=== PATIENT | male | born 1945 | race Caucasian/White ===

== ENCOUNTER 2024-03-07 18:38 | Inpatient (IN) | payer MEDICARE, OTHER, SELFPAY ==
[2024-03-07 12:52] VITALS: BP 127/84
[2024-03-07 13:29] LABS: % Basophils 0.4 % (0-2); % Immature Granulocytes 0.5 % (0-0.5); % Lymphocytes 6.2 % (20.5-51.1); % Monocytes 7.3 % (1.7-9.3); % Neutrophils 82.6 % (42.2-75.2); Absolute Basophils 0.1 10^3/uL (0-0.2); Absolute Eosinophils 0.4 10^3/uL (0-0.7); Absolute Immature Granulocytes 0.1 10^3/uL (0-0.05); Absolute Lymphocytes 0.7 10^3/uL (1.2-3.4); Absolute Monocytes 0.9 10^3/uL (0.1-0.6); Absolute Neutrophils 9.8 10^3/uL (1.4-6.5); Hematocrit 35.8 % (39.0-52.0); Hemoglobin 11.7 g/dL (13.0-18.0); Mean Corp Hgb Conc. 32.7 g/dL (33.0-37.0); Mean Corpuscular Hgb 26.4 pg (27.0-31.0); Mean Corpuscular Volume 80.8 fL (80.0-94.0); Mean Platelet Volume 9.6 fL (7.4-10.4); Nucleated Red Blood Cells % 0 % (-); Platelet Count 320 10^3/uL (130-400); Red Blood Cell Count 4.43 10^6/uL (4.70-6.10); Red Cell Dist. Width 15.4 % (11.5-14.5); White Blood Cell Count 11.9 10^3/uL (4.8-10.8)
[2024-03-07 13:39] LABS: ALT (SGPT) 139 U/L (0-50); AST (SGOT) 94 U/L (17-59); Albumin 3.6 g/dl (3.5-5.0); Alkaline Phosphatase 976 U/L (38-126); Blood Urea Nitrogen 23 mg/dl (9-20); Carbon Dioxide 23 mmol/L (22-30); Chloride 100 mmol/L (98-107); Glucose 144 mg/dl (70-99); Lipase 34 U/L (23-300); Potassium 3.9 mmol/L (3.5-5.1); Sodium 137 mmol/L (135-145); Total Bilirubin 11.4 mg/dl (0.2-1.3); Total Protein 6.8 g/dl (6.3-8.2); eGFR > 60.00
--- NOTE | 2024-03-07 16:04 | ED.GENMED ---
History of Present Illness
General
Chief Complaint: Abdominal Pain
Time Seen by Provider: 03/07/24 15:28
Nursing documentation reviewed up to this point in time: agreed with
History of Present Illness
History of Present Illness:
Patient is a 79-year-old male sent from [facility]. It is documented that patient was sent for abdominal pain and jaundice. Nurse Paulino reports pt started to c.o of abdominal pain on Sunday. Yesterday she noticed that pt was jaundice and pt did
c/o of abdominal pain.
Pt back from US during my exam . I was called by nurse stating that pt is agiated yelling trying to get out of bed and yelling. PT attempting to bite staff yelling.
Nurse from [place] reports pt can be violent and screams and yells.
Past History
Past History
ED Past Medical History: CAD, CVA, Hypercholesterolemia, Seizures and Hypothyroidism
ED Past Surgical History: Brain
Social History
Alcohol: None
Drug: None
Living: long term
Employment: Retired
Review of Systems
Review of Systems
Allergies reviewed?: Yes
Unable to obtain full review of systems at this time due to: dementia
All Other Systems: ROS reviewed and negative except as documented in HPI and ROS
Phy Exam
General Physical Exam
General Presentation: no apparent distress
General Skin: warm, dry and other (Jaundice)
General Habitus: elderly
General Mental: other (agitated )
General Hydration: appears well hydrated
Cardiovascular Exam
Cardiovascular Exam: regular rate/rhythm, no murmur and normal peripheral pulses
Pulmonary Exam
Pulmonary Exam: lungs clear and no respiratory distress
Neurological Exam
Neurological Exam: alert and oriented x3
Musculoskeletal Exam
Musculoskeletal Exam: full ROM
Skin Exam
Skin Exam: normal color and warm/dry
Psychiatric Exam
Psychiatric Exam: agitated
Course
Orders/Labs/Results
Orders:
Orders
10/04/24 13:14
Complete Blood Count/With Diff Urgent
Comprehensive Metabolic Panel Urgent
Lipase Urgent
03/07/24 13:53
US Abdomen Complete/Upper Urgent
Comment: LFTs high
Reason For Exam: abd pain, jaundice
03/07/24 16:38
Haloperidol Lactate [Haldol] 5 mg IM NOW STA
Lorazepam [Ativan] 1 mg IM NOW STA
Lorazepam [Ativan] 2 mg .ROUTE .STK-MED ONE
03/07/24 16:39
Haloperidol Lactate [Haldol] 5 mg .ROUTE .STK-MED ONE
03/07/24 16:57
0.9% Sodium Chloride 1000 ml [Nss] 1,000 ml IV BOLUS
03/07/24 16:58
Piperacillin/Tazo 3.375 Gram [Zosyn] 3.375 gram in 50 ml IV NOW
03/07/24 17:16
Lactic Acid Q4H
Comment: CANCEL 2nd LACTIC ACID IF 1st LACTIC ACID IS LESS THAN 2
Blood Culture Routine
ADELAIDA Source: Blood/Venous
Specimen Description:
Blood Culture Urgent
ADELAIDA Source: Blood/Venous
Specimen Description:
03/07/24 21:00
Lactic Acid Q4H
Comment: CANCEL 2nd LACTIC ACID IF 1st LACTIC ACID IS LESS THAN 2
Abnormal Lab Results
03/07/24
13:14
WBC 11.9 H 10^3/uL
(4.8-10.8)
RBC 4.43 L 10^6/uL
(4.70-6.10)
Hgb 11.7 L g/dL
(13.0-18.0)
Hct 35.8 L %
(39.0-52.0)
MCH 26.4 L pg
(27.0-31.0)
MCHC 32.7 L g/dL
(33.0-37.0)
RDW 15.4 H %
(11.5-14.5)
Abs Immat Gran (auto) 0.1 H 10^3/uL
(0-0.05)
Absolute Neuts (auto) 9.8 H 10^3/uL
(1.4-6.5)
Absolute Lymphs (auto) 0.7 L 10^3/uL
(1.2-3.4)
Absolute Monos (auto) 0.9 H 10^3/uL
(0.1-0.6)
Neutrophils % 82.6 H %
(42.2-75.2)
Lymphocytes % 6.2 L %
(20.5-51.1)
BUN 23 H mg/dl
(9-20)
Glucose 144 H mg/dl
(70-99)
Total Bilirubin 11.4 H mg/dl
(0.2-1.3)
AST 94 H U/L
(17-59)
ALT 139 H U/L
(0-50)
Alkaline Phosphatase 976 H U/L
(38-126)
03/07/24 13:14
03/07/24 13:14
Vital Signs
Initial and Last Documented VS:
Initial Vital Signs
Temp Pulse Resp BP Pulse Ox
98.4 F 88 16 127/84 97
03/07/24 12:52 03/07/24 12:52 03/07/24 12:52 03/07/24 12:52 03/07/24 12:52
Last Documented Vital Signs
Temp Pulse Resp BP Pulse Ox
98.4 F 77 20 104/81 99
03/07/24 12:52 03/07/24 16:28 03/07/24 16:28 03/07/24 16:28 03/07/24 16:28
MDM/Problems Addressed
Differential Diagnosis Includes:
Not limited to ascending cholangitis biliary ductal stone(choledocholithiasis)
MDM/Problems Addressed:
Called to pt's room. Pt just back from CT scan uncoopeerative yelling attempting to bite trying to get off the stretcher. Patient was given Ativan and Haldol IM
As documented patient is a 79-year-old male who is demented from long term who has a history of violent behavior and agitation sent for evaluation abdominal pain and jaundice. To speak with nurse at long term. Patient has contact number
listed however I did speak with her she is first cousin and not power of corporate associate attorney patient does not have a power of corporate associate attorney. He does have a brother who has not talked to him in 20 years. She will call brother and I will attempt to call brother
soon. Patient is afebrile white count minimally elevated 11.9 bilirubin however elevated 11.4 with AST and ALT elevated alk phos elevated 976. Normal creatinine.
1655: Patient now calmer sleep stable vital signs we will have nursing start IV line and do blood work including lactic acid blood cultures. Will order IV Zosyn. Case discussed with and hosptialist.
*Radiology
Radiology exam reviewed: radiology read reviewed
*Pulse Oximetry
Patient hypoxic: no
*Critical Care Note
Total Time (30-74mins, 75-104mins- exclusive of procedures): Not Applicable
ED Attending Note
-
Portions of this chart may have been created with voice recognition software.� Occasional wrong word or��sound alike� substitutions may have occurred due to the inherent limitations of voice recognition software.
Discharge Plan
Departure
Patient Disposition: Admit
Date of Disposition: 03/07/24
Time of Disposition: 17:12
Admit to: Med/Surg
Admit to doctor: hospitalist
Presentation/result/management discussed w/ accepting MD/DO: Hospitalist
Patient with high blood pressure during this ER visit?: No
Condition: Fair
Covid-19: Not Applicable
Discharge Problem:
Jaundice, Abdominal pain
Prescriptions:
No Action
levetiracetam 500 MG tablet
500 mg PO BID
tramadol 50 MG tablet
50 mg PO BID
simvastatin 40 MG tablet
40 mg PO QPM
levothyroxine 50 MCG tablet
50 mcg PO NOW
gabapentin 100 MG capsule
200 mg PO DAILY
topiramate 100 MG tablet
100 mg PO DAILY
Rx Instructions:
taken w/ 25mg = 125mg
acetaminophen [Tylenol] 325 MG capsule
650 mg PO Q4HPRN PRN (Reason: mild pain/temp>100)
melatonin 5 MG tablet
5 mg PO HS
hydrocodone-acetaminophen 5-325 mg tablet
1 tab PO DAILY
topiramate 25 mg tablet
25 mg PO DAILY
Rx Instructions:
taken w/ 100mg= 125mg
aspirin 81 mg Tablet,Delayed Release (Dr/Ec)
81 mg PO DAILY
magnesium hydroxide [Milk of Magnesia] 400 mg/5 mL Suspension
30 ml PO DAILYPRN PRN (Reason: if no bm in 3 days)
hydrocortisone 1 % Cream
1 applic TOPICAL Q6HPRN PRN (Reason: reddened, pruritic skin)
docusate sodium 100 mg Capsule
200 mg PO HS
topiramate 200 mg tablet
200 mg PO DAILY
duloxetine 60 mg capsule,delayed release(DR/EC)
60 mg PO DAILY
cholecalciferol (vitamin D3) 50 mcg (2,000 unit) Tablet
50 mcg PO DAILY
Aveeno Daily Moisturizing 1.2 % Lotion
1 ea TOPICAL DAILY
Rx Instructions:
apply to b/l lower legs/feet
Referrals:
UNKNOWN - PT NOT,INTERVIEWE [Family Provider] -
Interventions
Interventions:
*Risk Screen - Suicide Last Done: 03/07/24 16:54
*General Assessment Last Done: 03/07/24 16:54
*Neglect/Abuse Screening Last Done: 03/07/24 16:54
*ED COVID-19 Vaccine History Last Done: 03/07/24 16:54
TC-Lpeshn-Ruivlxsmop Assessment Last Done: 03/07/24 16:54
Discharge Date and Time
Print Language: SYRIAC
[2024-03-07 16:28] VITALS: BP 104/81
[2024-03-07] MEDS: HALDOL 5 MG IM (16:42)
[2024-03-07] MEDS: ATIVAN 1 MG IM (16:42)
--- NOTE | 2024-03-07 16:49 | EDRN ---
Patient became very agitated, trying to get out of bed. Patient unable to be redirected by staff. Patient trying to hit and bite staff. Provider at bedside. Medications given per MAR. Patient appears comfortable at this time. Pillow provided, HOB
adjusted.
[2024-03-07] MEDS: NSS 1000 IV ×2 (17:14→20:33)
[2024-03-07] MEDS: ZOSYN 50 IV ×2 (17:14→23:17)
--- NOTE | 2024-03-07 17:14 | HPS.HSE ---
Family Physician
-
Family Physician: INTERVIEWE UNKNOWN - PT NOT
Chief Complaint
-
Abdominal pain, jaundice
History of Present Illness
79-year-old male sent from [facility] complaining of right upper quadrant abdominal pain since Sunday 5 days ago. Yesterday he was noted to be jaundice in color. In the ER on arrival he was agitated attempting to get out of bed yelling
and attempting to bite staff. He was given IV Ativan and Haldol is currently calm. He reports to me he has pain in the right upper quadrant of his abdomen. He denies nausea, vomiting, diarrhea, chest pain, palpitations, shortness with, cough,
fever, chills, urinary symptoms. He has history of dementia but is oriented to place of living [facility] in [place], age, date of , first cousins name Bernadette, estranged brother he told me Rory,. When asked about CODE STATUS in
front of nurse Donna Gil he stated I do not want to be in the fci I do not want to be like that not a vegetable wandering around saying jesus lee blah. He tells me is past medical history of ambulatory dysfunction uses a walker,
history of CHF with chronic leg edema, brain aneurysm rupture with repair August 1994, CVAs patient states multiple, seizures, CAD, HTN, HLD, chronic pain on chronic oral opiates, hypothyroidism, depression, vitamin D deficiency, insomnia, COVID October
2019, spina bifida/spinal stenosis, bilateral hypertensive retinopathy
Medical History
Past Medical History
Past Medical History: Reports Other
Additional Past Medical History:
Dementia
Brain aneurysm rupture with repair August 1994 [facility]
Aphasia-resolved
Dysphagia-resolved
Seizures
TIA hemiaplasia/hemiparesis
CAD
HTN
CHF with peripheral leg edema
HLD
CKD
Hypothyroidism
Depression
Vitamin D deficiency
Insomnia
History of prior COVID October 2019
Spina bifida/spinal stenosis
Chronic ambulatory dysfunction Hx falls
Bilateral hypertensive retinopathy
Past Surgical History: Reports Other
Additional Past Surgical History:
Brain aneurysm rupture with repair [facility] August 1994, plate in head
Social History
Tobacco: Non-smoker
Alcohol: None
Drug: None
Personal: Single (Never no children)
Living: Care Home ([facility])
Employment: Retired
Family History
Family History: Not pertinent
Allergies / Home Medications
Allergies reflects when Allergies were last updated in [employer].
Home Medications with original date entered in [employer]
Allergy/Medication List:
Allergies
Allergy/AdvReac Type Severity Reaction Status Date / Time
No Known Allergies Allergy Unverified 03/07/24 12:52
Home Medications
acetaminophen 325 mg capsule (Tylenol) 650 mg PO Q4HPRN PRN mild pain/temp>100 10/07/19
gabapentin 100 mg capsule 200 mg PO DAILY 10/07/19
levetiracetam 500 mg tablet 500 mg PO BID 10/07/19
levothyroxine 50 mcg tablet 50 mcg PO NOW 10/07/19
melatonin 5 mg tablet 5 mg PO HS 10/07/19
simvastatin 40 mg tablet 40 mg PO QPM 10/07/19
topiramate 100 mg tablet 100 mg PO DAILY 10/07/19
tramadol 50 mg tablet 50 mg PO BID 10/07/19
aspirin 81 mg tablet,delayed release 81 mg PO DAILY 03/07/24
cholecalciferol (vitamin D3) 50 mcg (2,000 unit) tablet 50 mcg PO DAILY 03/07/24
dimethicone 1.2 %-colloidal oatmeal lotion (Aveeno Daily Moisturizing) 1 ea topical DAILY 03/07/24
docusate sodium 100 mg capsule 200 mg PO HS 03/07/24
duloxetine 60 mg capsule,delayed release 60 mg PO DAILY 03/07/24
hydrocodone 5 mg-acetaminophen 325 mg tablet 1 tab PO DAILY 03/07/24
hydrocortisone 1 % topical cream 1 applic topical Q6HPRN PRN reddened, pruritic skin 03/07/24
magnesium hydroxide 400 mg/5 mL oral suspension (Milk of Magnesia) 30 ml PO DAILYPRN PRN if no bm in 3 days 03/07/24
topiramate 200 mg tablet 200 mg PO DAILY 03/07/24
topiramate 25 mg tablet 25 mg PO DAILY 03/07/24
Review of Systems
-
History Source: Patient and Care Home
A 12 point ROS was completed and negative except as noted: Yes
Constitutional: Denies Fever or Chills
EENT: Denies Sore Throat or Runny Nose
Respiratory: Denies Cough or Trouble Breathing
Cardiac: Denies Chest Pain, Diaphoresis, Palpitations or Syncope
Abdomen/GI: Reports Abdominal Pain (Right upper quadrant); Denies Nausea, Vomiting, Diarrhea, Constipated, Bloody Stools or Black Stools
: Denies Dysuria, Frequency, Flank Pain, Incontinence, Difficulty Voiding or Urgency
Musculoskeletal: Reports Edema (Chronic leg edema left greater than right); Denies Joint Pain
Skin: Reports Other (Diffuse jaundice head to toe, icteral sclera); Denies Itching or Rash
Neurological: Denies Dizzy, Headache or Weakness
Endocrine: Denies Polyuria or Polydipsia
Hematologic/Lymphatic: Reports No Symptoms
Psych: Reports Calm (Was prior agitated biting and trying to get out of bed was given IV Ativan and Haldol by ER)
Physical Exam
Vital Signs
Vital Signs
Temp Pulse Resp BP Pulse Ox
98.4 F 77 20 104/81 99
03/07/24 12:52 03/07/24 16:28 03/07/24 16:28 03/07/24 16:28 03/07/24 16:28
Physical Exam
General: Comfortable and Conversant; No Pain, Fever or Chills
HEENT: NormoCephalic, Anicteric, Moist mucous membranes, PERRLA and Other (icteral sclera)
Respiratory: Clear; No Wheezes, Rales or Rhonchi
Cardiac: S1/S2, Regular Rhythm and Peripheral Edema (Bilateral left greater than right); No Murmur, Rub or Gallop
Breast: Deferred by me
GI: Soft, Non Distended, Normal Bowel Sounds, Tender (Tender right upper quadrant on palpation, mild tenderness left upper quadrant) and No Hepatosplenomegaly
Rectal: Deferred by Provider
Genito-urinary: Deferred by me
Musculoskeletal: No Clubbing, No Cyanosis, Edema, Left Lower Extremity (+1 edema) and Edema, Right Lower Extremity (Trace edema right leg); No Edema, Left Upper Extremity or Edema, Right Upper Extremity
Skin: Warm, Dry and Jaundice (Generalized from head to toe); No Rash
Neuro: Awake, Alert, Oriented (To name, date of , place of living, cousin Becky's name and phone number, brother he is estranged from, medical history), No Motor Deficits and No Sensory Deficits; No Slurred Speech, Facial Droop, Tremors or
Sedated
Psych: Calm
Laboratory Results
-
03/07/24 13:14
03/07/24 13:14
Laboratory Results
Total Bilirubin 11.4 mg/dl (0.2-1.3) H 03/07/24 13:14
AST 94 U/L (17-59) H 03/07/24 13:14
ALT 139 U/L (0-50) H 03/07/24 13:14
Alkaline Phosphatase 976 U/L (38-126) H 03/07/24 13:14
Lipase 34 U/L (23-300) 03/07/24 13:14
Data Reviewed
-
Ultrasound: Report Reviewed by me
Lab Data: Labs Reviewed by me
Impression/Plan
-
Impression/plan:
Admit to MedSurg
#Hyperbilirubinemia with transaminitis concern for choledocholithiasis
T. bili 11.4, AST 94, ALT 139, alk phos 976
WBC 11.9 with left shift, afebrile
-N.p.o.
-IV NSS
-IV Zofran
Continue patient's hydrocodone/acetaminophen 1 tab daily, tramadol 50 mg twice daily
-Blood culture, check lactic acid
-IV Zosyn
-Consult GI
-MRCP
-Follow CBC, CMP
Ultrasound abdomen Gallbladder is distended and contains a fluid-fluid layer, compatible with diffuse sludge. There are also shadowing gallstones within the gallbladder.
The bladder wall is top normal to slightly thickened with a negative sonographic Gonzales's sign.
Diffuse intrahepatic bile duct dilation. The common hepatic duct is dilated, measuring up to 9.8 mm. Common bile duct is unable to be confidently visualized.
Spleen, pancreas, upper abdominal aorta, and upper abdominal IVC are unable to be adequately visualized.
Findings raise concern for biliary obstruction in the region of the common bile duct. Considerations include obstructing calculus and mass in the region of the head of the pancreas.
#Acute agitation with history of Dementia
-Patient given IV Ativan and Haldol in ER for acute agitation
-IV Haldol as needed agitation
#CVA hx hemiaplasia/hemiparesis-patient reports had more than 1 unsure of years
Subtle left arm hemiparesis can lift up to face
Aphasia/Dysphagia hx -resolved
#Seizures hx poststroke
-Continue Keppra IV 500 mg twice daily
-Continue Topamax 325 mg daily
#Chronic diastolic heart failure with chronic peripheral edema
I/O, daily weights
Would apply teds dressings
No diuretics listed
#CAD
-Hold aspirin 81 mg daily
#HTN-benign
-No medications reported
#HLD
Check lipid profile
-HOLD simvastatin 40 mg every afternoon
#Chronic pain on chronic oral opiates due to spinal stenosis
Patient on hydrocodone/acetaminophen 1 tab daily, tramadol 50 mg twice daily gabapentin 200 mg daily
#Hypothyroidism
-Continue levothyroxine 50 mcg p.o. daily
#Depression
-Continue Cymbalta 60 mg daily
#Vitamin D deficiency
-Continue vitamin D3 50 mcg p.o. daily
#Insomnia
-Continue melatonin 5 mg at bedtime
#Chronic ambulatory dysfunction Hx falls
Patient reports uses walker to ambulate
-PT/OT consult
Other PMH:
History of prior COVID October 2019
Spina bifida/spinal stenosis
Bilateral hypertensive retinopathy
DVT prophylaxis
Subcu Lovenox
DNR per patient with nurse Donna Licona at bedside patient was very clear and adamant he did not want to be stuck in a fci like a vegetable or wandering around saying jesus lee when discussing CPR and a ventilator. He does not
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 He has a brother Rich he is estranged from x 25 years [phone]
[2024-03-07 17:38] LABS: Lactic Acid 1.6 mmol/L (0.7-2.0)
--- NOTE | 2024-03-07 18:33 | W.PN.UPDATE ---
Update Note
Progress Note Update
This is an addendum to the H&P written by Vanda Barton on 03/07/2024.� Patient seen and examined independently with [employer] COURTESY CLERK.
79-year-old male past medical history of dementia, CVA with subtle left-sided hemiparesis, seizure history, brain aneurysm status post rupture status post repair, CAD, hypertension, hypertensive retinopathy, hyperlipidemia, spinal stenosis/chronic
back pain, hypothyroidism, depression, vitamin D deficiency, insomnia, chronic amatory dysfunction with falls, presenting with right upper quadrant abdominal pain and jaundice and agitation.
Patient was agitated in ER and received Haldol and Ativan.
Labs show leukocytosis, transaminitis with elevation in bilirubin up to 11.� Abdominal ultrasound shows gallbladder distention with fluid-filled layer compatible with diffuse large.� There are shadowing gallstones within the gallbladder.� There is
diffuse Intermatic bile duct dilatation.� None hepatic duct is dilated up to 9.8 mm.
Likely choledocholithiasis.� Clear liquid diet, n.p.o. past midnight.� Zosyn.� As needed Haldol for agitation which appears to be secondary to delirium from dementia.� MRCP.� GI consulted.�
--- NOTE | 2024-03-07 19:33 | PTCARENOTE ---
Pt received from ED to [facility]2. Pt oriented to room and call rahman.
[2024-03-07 19:56] VITALS: BP 151/79; BMI 25.6
[2024-03-07] MEDS: ULTRAM 50 MG PO (20:32)
[2024-03-07] MEDS: KEPPRA 500 MG PO (20:33)
[2024-03-07] MEDS: MELATONIN PO (22:26)
[2024-03-07 23:00] VITALS: BP 110/90
[2024-03-08] MEDS: ZOSYN 50 IV ×4 (05:19→23:19)
[2024-03-08] MEDS: SYNTHROID 50 MCG PO (05:45)
[2024-03-08 06:00] VITALS: BMI 25.6
[2024-03-08 07:00] VITALS: BP 136/71
[2024-03-08 07:28] LABS: % Basophils 0.6 % (0-2); % Eosinophils 5.2 % (0-6); % Immature Granulocytes 0.6 % (0-0.5); % Monocytes 9.6 % (1.7-9.3); Absolute Basophils 0.1 10^3/uL (0-0.2); Absolute Eosinophils 0.6 10^3/uL (0-0.7); Absolute Immature Granulocytes 0.1 10^3/uL (0-0.05); Absolute Lymphocytes 0.5 10^3/uL (1.2-3.4); Absolute Neutrophils 8.5 10^3/uL (1.4-6.5); Hematocrit 33.2 % (39.0-52.0); Mean Corp Hgb Conc. 33.1 g/dL (33.0-37.0); Mean Corpuscular Hgb 27.4 pg (27.0-31.0); Mean Corpuscular Volume 82.8 fL (80.0-94.0); Nucleated Red Blood Cells % 0 % (-); Platelet Count 262 10^3/uL (130-400); Red Blood Cell Count 4.01 10^6/uL (4.70-6.10); Red Cell Dist. Width 15.9 % (11.5-14.5); White Blood Cell Count 10.8 10^3/uL (4.8-10.8)
--- NOTE | 2024-03-08 07:38 | W.PN.HOSP.TC ---
Today's Communication/Plan
-
Pain control
PT/OT
empiric abx
pending MRCP
cont ASA statin
Assessment / Plan
Assessment / Plan
Physical Exam
General: Comfortable and Conversant
HEENT: NormoCephalic, Anicteric, Moist mucous membranes, PERRLA, sclera icterus
Respiratory: Clear; No Wheezes, Rales, or Rhonchi
Cardiac: S1/S2, Regular Rhythm systolic murmur 08/07
GI: Soft, Non Distended, Normal Bowel Sounds, Tender right upper quadrant on palpation, No Hepatosplenomegaly
Musculoskeletal: No Clubbing, No Cyanosis
Skin: Jaundice
Neuro: AOx2 disoriented to time
Psych: Calm
79M [facility] ext pmhx including Dementia, CHF, chronic leg edema, brain aneurysm rupture/repair August 1994, CVAs, sz d/o, CAD, HTN, HLD, chronic pain opiate dependent, hypothyroidism, depression, spina bifida/spinal stenosis, bilateral
hypertensive retinopathy p/w RUQ abd pain and jaundice.
#Hyperbilirubinemia with transaminitis concern for choledocholithiasis
-Clear liquid diet
-IV NSS
-IV Zofran
-Continue patient's hydrocodone/acetaminophen 1 tab daily, tramadol 50 mg twice daily
-Blood culture NGTD, lactic acid wnl
-empiric IV Zosyn
- Abd US appreciated
-Consult GI appreciated pending MRCP
#Acute agitation with history of Dementia
-Patient given IV Ativan and Haldol in ER for acute agitation
-IV Haldol as needed agitation
#Systolic Murmur
Check ECHO
#CVA hx
Subtle left arm hemiparesis can lift up to face
Aphasia/Dysphagia hx -resolved
#Sz d/o poststroke
-Continue Keppra IV 500 mg twice daily
-Continue Topamax 125 mg daily, 200 mg QPM
#Chronic diastolic heart failure with chronic peripheral edema
I/O, daily weights
check venous duplex
#CAD
-cont aspirin 81 mg daily
#reported hx HTN
no home antihypertensives noted
monitor
#HLD
lipid profile appreciated elevated triglycerides cholesterol LDL 170
goal LDL w/ hx stroke <70
cont statin
#Chronic pain on chronic oral opiates due to spinal stenosis
Patient on hydrocodone/acetaminophen 1 tab daily, tramadol 50 mg twice daily, gabapentin 200 mg daily
#Hypothyroidism
-Continue levothyroxine 50 mcg p.o. daily
#Depression
-Continue Cymbalta 60 mg daily
#Vitamin D deficiency
-Continue vitamin D3 50 mcg p.o. daily
#Insomnia
-Continue melatonin 5 mg at bedtime
#Chronic ambulatory dysfunction Hx falls
Patient reports uses walker to ambulate
-PT/OT consult appreciated SNF vs return to LTC
#Hx Bilateral hypertensive retinopathy
DVT prophylaxis Subcu Lovenox
DNR
discussed with patient and GI
updated cousin Bernadette only listed contact for patient. Cousin confirms patient has no POA and makes his own decisions
I spent a total of 50 minutes with the patient or on the floor. More than 50% of this time involved counseling and coordination of care.
Anticipated Discharge: > 48 hours
Subjective/Interval History
-
Date of Service: March 08, 2024
No acute distress sitting up comfortably in bed. AOx2 disoriented to time. Abd pain persists, RUQ tenderness.
Objective Data
-
Labs:
Laboratory Results
03/08/24
07:15
WBC 10.8
Hgb 11.0 L
Hct 33.2 L
Plt Count 262
Sodium Pending
Potassium Pending
Chloride Pending
Carbon Dioxide Pending
BUN Pending
Creatinine Pending
Glucose Pending
Calcium Pending
Total Bilirubin Pending
AST Pending
ALT Pending
Alkaline Phosphatase Pending
Vital Signs:
Vital Signs
Temp Pulse Resp BP Pulse Ox
97.6 F 77 18 110/90 96
03/07/24 23:00 03/07/24 23:00 03/07/24 23:00 03/07/24 23:00 03/07/24 23:00
I&O
03/07/24 03/08/24 03/09/24
06:59 06:59 06:59
Intake Total 600 / 600 140 / 140
Balance 600 / 600 140 / 140
[2024-03-08 07:56] LABS: ALT (SGPT) 109 U/L (0-50); AST (SGOT) 86 U/L (17-59); Alkaline Phosphatase 866 U/L (38-126); Blood Urea Nitrogen 18 mg/dl (9-20); Calcium 9.2 mg/dl (8.4-10.2); Carbon Dioxide 23 mmol/L (22-30); Chloride 102 mmol/L (98-107); Estimated Creatinine Clearance 77 ml/min; Glucose 97 mg/dl (70-99); HDL Cholesterol 30 mg/dl; LDL Cholesterol, Calculated 170 mg/dl; Sodium 137 mmol/L (135-145); Total Bilirubin 13.5 mg/dl (0.2-1.3); Total Cholesterol 231 mg/dl (50-199); Triglyceride 159 mg/dl (10-149); Very Low Density Lipoprotein 31 mg/dl (0-30); eGFR > 60.00
[2024-03-08] MEDS: ULTRAM 50 MG PO ×2 (09:07→20:19)
[2024-03-08] MEDS: VITAMIN D3 (cholecalciferol) 50 MCG PO (09:08)
[2024-03-08] MEDS: NORCO 5/325 1 TABLET PO (09:08)
[2024-03-08] MEDS: CYMBALTA DELAYED RELEASE 60 MG PO (09:08)
[2024-03-08] MEDS: TOPAMAX 25 MG PO (09:08)
[2024-03-08] MEDS: NEURONTIN 200 MG PO (09:08)
[2024-03-08] MEDS: KEPPRA 500 MG PO ×2 (09:11→20:20)
[2024-03-08] MEDS: TOPAMAX 100 MG PO (09:11)
--- NOTE | 2024-03-08 09:43 | CON.GI ---
Addendum entered and electronically signed by Rosa Elena Goss DO 03/08/24 13:34:
patient seen and examined independently of NEUROLOGICAL PHYSIOTHERAPIST. I agree with her note with my additions below.
Salvador is a 79yoM with hx of CVA with left sided weakness, dementia, CAD, chronic pain on opiates, hx of falls presents with jaundice and abdominal pain. History is limited and taken from the chart. When asking multiple questions he gets upset so I
used most of the history from my NEUROLOGICAL PHYSIOTHERAPIST.
Currently lives at [facility] and was complaining of epigastric/RUQ pain since Sunday then turned jaundice. ON admission WBC 11.9, total bili 11.4, alk phos 979, lipase 34, ALT 139, AST 94.
It took ativan and haldol to get an US which shows a distended GB with sludge and stones, no pericholecystic fluid, with severe diffuse intrahepatic and common hepatic duct dilation of 9.8. Unable to see the CBD on exam. Can't see the pancreas on
u/s.
Patient was placed on empiric antibiotics. Currently, denies nausea/vomiting or pain unless you palpate his RUQ.
Refusing me to call his brother but has a cousin involved in his care.
He is agreeable to go to MRI after I explained why he needs it.
CHeck CBC, CMP, coags in the morning. Blood cultures pending, but no fevers during admission.
will await MRI/MRCP. IF he can't handle sitting in the tube for that long, he at least needs a CT scan with IV..
Original Note:
Consultation
-
Date/Time Consultation Requested: 03/07/24 @ 18:32
Date/Time Consultation Performed: 03/08/24 @ 09:45
Requesting Provider: SILAS Rocha
Performing Provider: SILAS Amin; Dr. Rosa Elena Goss
Reason for Consultation: Acute jaundice/transaminitis concern for choledocholithiasis
Medical History
Chief Complaint / HPI
Chief Complaint: abdominal pain, jaundice
History of Present Illness:
The patient is a 79-year-old male with a past medical history significant for dementia, CVA with mild left-sided hemiparesis, seizures, remote history of brain aneurysm with rupture s/p repair in 1994 at [place], CAD, hypertension, hyperlipidemia,
chronic back pain/spinal stenosis on chronic opiates, hypothyroidism, depression, insomnia, chronic ambulatory dysfunction with history of falls, vitamin D deficiency, hypertensive retinopathy, who presented to the emergency room with complaints of
abdominal pain and jaundice, which we are being asked to evaluate for. Upon review of admitting records, the patient is from [facility] and was complaining of right upper quadrant pain since Sunday. He was noted to be jaundiced in
color and was brought to the emergency room for further evaluation. Upon ER evaluation he was combative attempting to harm staff and yelling, which was treated with IV Ativan and Haldol. Upon admission labs showed WBC 11.9, hemoglobin 11.7,
platelets 320,000, total bilirubin 11.4, AST 94, ALT 139, alk phos 979, lipase 34. Ultrasound imaging of the abdomen showed a distended gallbladder containing a fluid layer compatible with diffuse sludge along with shadowing gallstones within the
gallbladder. Also findings of diffuse intrahepatic biliary ductal dilation and a dilated common hepatic duct up to 9.8 mm concerning for biliary obstruction secondary to stone. Obstructing mass can also not be excluded. He was placed on a clear
liquid diet and ordered MRCP for further evaluation pending GI consult. IV Zosyn was also started upon admission. Upon interview, the patient is somewhat drowsy but does respond to questions. When asking questions about his pain he reports that
he has stomach pain that 'hurts a lot.' He does not elaborate on this and notes that it has been going on for 2 weeks. He denies any nausea or vomiting. When asked to point to the pain he is unable to do so. He denies any history of liver
problems or alcohol use. He denies any history of cancers. He denies any history of smoking. He then became agitated with me and cursing regarding my questioning. He is visibly jaundiced, with no significant tenderness on exam of the abdomen.
When asked if he would undergo an MRI he states 'no I will not.' History obtained from the medical record due to the patient being a poor historian.
Past Medical History
Past Medical History: CAD, CHF (chronic LE edema), CVA (left sided hemiparesis/TIA), HTN, Hypercholesterolemia, Hypothyroidism, Seizures, Psychiatric (depression) and Other (chronic back pain on opiates, spinal stenosis, depression, insomnia,
ambulatory dysfunction, vitamin d Deficiency, hypertensive retinopathy, hx brain aneurysm with rupture/repair 1994, CKD)
Past Surgical History: Other (brain aneurysm [facility] repair, plate in head [facility] 1994)
Social History
Tobacco: Non-Smoker
Alcohol: None
Drug: None
Living: [facility]
Family History
Family History: Reviewed & Not Pertinent
Allergies / Home Medications
Allergy/AdvReac Type Severity Reaction Status Date / Time
No Known Allergies Allergy Verified 03/07/24 18:30
�Medication �Instructions �Recorded
acetaminophen 325 mg capsule 650 mg PO Q4HPRN PRN mild 10/07/19
(Tylenol) pain/temp>100
gabapentin 100 mg capsule 200 mg PO DAILY 10/07/19
levetiracetam 500 mg tablet 500 mg PO BID 10/07/19
levothyroxine 50 mcg tablet 50 mcg PO NOW 10/07/19
melatonin 5 mg tablet 5 mg PO HS 10/07/19
simvastatin 40 mg tablet 40 mg PO QPM 10/07/19
topiramate 100 mg tablet 100 mg PO DAILY 10/07/19
tramadol 50 mg tablet 50 mg PO BID 10/07/19
aspirin 81 mg tablet,delayed 81 mg PO DAILY 03/07/24
release
cholecalciferol (vitamin D3) 50 50 mcg PO DAILY 03/07/24
mcg (2,000 unit) tablet
dimethicone 1.2 %-colloidal 1 ea topical DAILY 03/07/24
oatmeal lotion (Aveeno Daily
Moisturizing)
docusate sodium 100 mg capsule 200 mg PO HS 03/07/24
duloxetine 60 mg capsule,delayed 60 mg PO DAILY 03/07/24
release
hydrocodone 5 mg-acetaminophen 325 1 tab PO DAILY 03/07/24
mg tablet
hydrocortisone 1 % topical cream 1 applic topical Q6HPRN PRN 03/07/24
reddened, pruritic skin
magnesium hydroxide 400 mg/5 mL 30 ml PO DAILYPRN PRN if no bm in 03/07/24
oral suspension (Milk of Magnesia) 3 days
topiramate 200 mg tablet 200 mg PO DAILY 03/07/24
topiramate 25 mg tablet 25 mg PO DAILY 03/07/24
Review of Systems
-
Unable to obtain full review of systems at this time due to: Dementia
History Source: Patient
Constitutional: Reports No Symptoms
EENT: Reports No Symptoms
Respiratory: Reports No Symptoms
Cardiac: Reports No Symptoms
Abdomen/GI: Reports Abdominal Pain
: Reports No Symptoms
Musculoskeletal: Reports No Symptoms
Skin: Reports Other (jaundice)
Vital Signs
Temp Pulse Resp BP Pulse Ox
97.5 F 70 20 136/71 100
03/08/24 07:00 03/08/24 07:00 03/08/24 07:00 03/08/24 07:00 03/08/24 07:00
Physical Exam
Exam
General: No Apparent Distress, Comfortable and Other (+Jaundice, elderly and chronically ill appearing male)
HEENT: Normocephalic, Atraumatic and Other (would not open eyes for exam)
Respiratory: Clear
Cardiac: S1/S2, Regular Rhythm and Murmur
Breast: N/A
GI: Soft, Non Tender, Non Distended and Normal Bowel Sounds
Rectal: Deferred by Provider
Musculoskeletal: Edema (+2 bilateral LE edema with chronic skin changes)
Skin: Other (jaundice)
Neuro: Other (eyes closed, falling asleep during conversation, unable to assess orientation as he would not answer questions)
Psych: Agitated
Results
WBC 10.8 10^3/uL (4.8-10.8) 03/08/24 07:15
Hgb 11.0 g/dL (13.0-18.0) L 10 07:15
Hct 33.2 % (39.0-52.0) L 03/08/24 07:15
MCV 82.8 fL (80.0-94.0) 03/08/24 07:15
Plt Count 262 10^3/uL (130-400) 03/08/24 07:15
Absolute Neuts (auto) 8.5 10^3/uL (1.4-6.5) H 03/08/24 07:15
Sodium 137 mmol/L (135-145) 03/08/24 07:15
Potassium 4.0 mmol/L (3.5-5.1) 03/08/24 07:15
Chloride 102 mmol/L (98-107) 03/08/24 07:15
Carbon Dioxide 23 mmol/L (22-30) 03/08/24 07:15
BUN 18 mg/dl (9-20) 03/08/24 07:15
Creatinine 1.0 mg/dL (0.7-1.3) 03/08/24 07:15
Calcium 9.2 mg/dl (8.4-10.2) 03/08/24 07:15
Total Bilirubin 13.5 mg/dl (0.2-1.3) H 03/08/24 07:15
AST 86 U/L (17-59) H 03/08/24 07:15
ALT 109 U/L (0-50) H 03/08/24 07:15
Alkaline Phosphatase 866 U/L (38-126) H 03/08/24 07:15
Lipase 34 U/L (23-300) 03/07/24 13:14
Diagnostic Image Results:
03/07/24 US abdomen: IMPRESSION: Gallbladder is distended and contains a fluid-fluid layer, compatible with diffuse sludge. There are also shadowing gallstones within the gallbladder. The bladder wall is top normal to slightly thickened with a
negative sonographic Gonzales's sign. Diffuse intrahepatic bile duct dilation. The common hepatic duct is dilated, measuring up to 9.8 mm. Common bile duct is unable to be confidently visualized. Spleen, pancreas, upper abdominal aorta, and upper
abdominal IVC are unable to be adequately visualized. Findings raise concern for biliary obstruction in the region of the common bile duct. Considerations include obstructing calculus and mass in the region of the head of the pancreas.
Prior GI Procedures:
EGD: none on file
Colonoscopy: none on file
Assessment / Plan
-
The patient is a 79-year-old male with a past medical history significant for dementia, CVA with mild left-sided weakness, seizures, remote history of brain aneurysm with rupture s/p repair in 1994 at [place], CAD, hypertension, hyperlipidemia,
chronic back pain/spinal stenosis on chronic opiates, hypothyroidism, depression, insomnia, chronic ambulatory dysfunction with history of falls, vitamin D deficiency, hypertensive retinopathy, who presented to the emergency room with complaints of
abdominal pain and obstructive jaundice with concern for choledocholithiasis v other obstructive process upon US imaging and labs. He has no pain currently but had been having abdominal pain for at least the past week, noted to be jaundiced by
care home staff. US showing concern for biliary obstruction. He is pending MRI/MRCP. LFT's are uptrending. He is visibly jaundice. Hx as per EMR, pt would not offer more information. Started on Zosyn to cover for infectious process. He has a hx
of dementia and was getting agitated during our discussion.
Problem list:
-jaundice
-abnormal LFT's
-US showing GB distention and sludge with stones, diffuse intrahepatic biliary ductal dilation, common hepatic duct dilation
-abdominal pain
-leukocytosis, resolved
-acute agitation with hx dementia
Other pertinent medical hx:
-CVA with left hemiparesis
-seizures
-hx brain aneurysm with rupture/repair remotely
-CAD
-HTN
-HLD
-chronic back pain on opiates
-hypothyroidism
-depression
-insomnia
-chronic ambulatory dysfunction
-vit d deficiency
-dementia
Recommendations:
-Etiology of current symptoms consistent with biliary obstructive possibly choledocho v mass v stricture v other
-Plan for MRI/MRCP. If he cannot tolerate would do CT to get some cross sectional imaging to evaluate for a mass, discussed with Dr. Goss
-Trend LFT's
-Avoid hepatotoxins
-IV antibiotics with Zosyn
-Check hepatitis serologies
-Monitor for fevers
-If cannot tolerate MRI/MRCP to consider ERCP/EUS on Sunday
-Will need to discuss further with family given his dementia.
-Further management pending above
Data Reviewed
-
Ultrasound: Report Reviewed by me and Discussed with Physician
-
-
Thank you for consultation and allowing me to participate in the patient's care. Please call the new vehicle sales consultant GI physician during the after hours with any questions or concerns.
[2024-03-08 10:20] LABS: Direct Bilirubin 11.1 mg/dl (0.0-0.4)
[2024-03-08 12:37] VITALS: BP 109/54; PULSE 74; O2SAT 99
--- NOTE | 2024-03-08 14:43 | CM ---
IA completed with cousin via phone
Pt is a 79yr old male admitted from [facility] with suspected biliary obstruction.
Pt is jaundice and has a distended Gallbladder.
At admission, pt was agitated. Cousin notes that he can get resistive related to change and anxiety.
Facility notes that pt does walk with a RW, but has been also witnessed not using it many times. Pt is confused at times and identified as AAOx2 at baseline.
Cousin notes that she is his emergency contact, but she is not his POA. Cousin notes that up until now, he has made all his own decisions and she would expect him to now. Cousin notes an estranged brother, Rich, who has voiced willingness to be
involved if needed # [phone].
PLAN; [place] [facility] [place]
[2024-03-08 15:00] VITALS: BP 135/67
--- NOTE | 2024-03-08 16:33 | PTCARENOTE ---
Patient drowsy, but arousable with verbal stimuli. Patient eating 100% of clear liquid trays. Patient has no c/o pain. Patient ambulates to bathroom with assist x1 and walker. Patient is wearing his own pull up underwear and refuses to change them
at present. Patient does not like the [facility] underwear.
[2024-03-08] MEDS: LOVENOX 40 MG SC (18:14)
[2024-03-08] MEDS: TOPAMAX 200 MG PO (18:14)
[2024-03-08] MEDS: MELATONIN 5 MG PO (20:21)
[2024-03-08] MEDS: LIPITOR 20 MG PO (21:34)
[2024-03-08 23:10] VITALS: BP 119/81
[2024-03-09 06:00] VITALS: BMI 26.1
[2024-03-09] MEDS: SYNTHROID 50 MCG PO (06:01)
[2024-03-09] MEDS: ZOSYN 50 IV ×3 (06:01→18:44)
[2024-03-09 06:54] LABS: % Basophils 0.4 % (0-2); % Eosinophils 4.8 % (0-6); % Immature Granulocytes 0.8 % (0-0.5); % Lymphocytes 5.2 % (20.5-51.1); % Monocytes 9.6 % (1.7-9.3); % Neutrophils 79.2 % (42.2-75.2); Absolute Basophils 0.1 10^3/uL (0-0.2); Absolute Eosinophils 0.6 10^3/uL (0-0.7); Absolute Immature Granulocytes 0.1 10^3/uL (0-0.05); Absolute Lymphocytes 0.6 10^3/uL (1.2-3.4); Absolute Monocytes 1.2 10^3/uL (0.1-0.6); Absolute Neutrophils 9.8 10^3/uL (1.4-6.5); Hematocrit 31.7 % (39.0-52.0); Hemoglobin 10.5 g/dL (13.0-18.0); Mean Corp Hgb Conc. 33.1 g/dL (33.0-37.0); Mean Corpuscular Hgb 26.6 pg (27.0-31.0); Mean Corpuscular Volume 80.3 fL (80.0-94.0); Mean Platelet Volume 10.1 fL (7.4-10.4); Nucleated Red Blood Cells % 0 % (-); Platelet Count 274 10^3/uL (130-400); Red Blood Cell Count 3.95 10^6/uL (4.70-6.10); Red Cell Dist. Width 16.2 % (11.5-14.5); White Blood Cell Count 12.4 10^3/uL (4.8-10.8)
[2024-03-09 06:55] LABS: INR 1.17; PT 14.7 Sec (11.4-14.6)
[2024-03-09 07:10] LABS: ALT (SGPT) 96 U/L (0-50); AST (SGOT) 87 U/L (17-59); Albumin 2.9 g/dl (3.5-5.0); Alkaline Phosphatase 815 U/L (38-126); Blood Urea Nitrogen 14 mg/dl (9-20); Calcium 9.1 mg/dl (8.4-10.2); Carbon Dioxide 22 mmol/L (22-30); Chloride 100 mmol/L (98-107); Estimated Creatinine Clearance 77 ml/min; Glucose 110 mg/dl (70-99); Potassium 3.6 mmol/L (3.5-5.1); Sodium 134 mmol/L (135-145); Total Bilirubin 15.1 mg/dl (0.2-1.3); Total Protein 5.8 g/dl (6.3-8.2); eGFR > 60.00
[2024-03-09 07:50] VITALS: BP 145/69
[2024-03-09] MEDS: NEURONTIN 200 MG PO (08:17)
[2024-03-09] MEDS: KEPPRA 500 MG PO ×2 (08:17→19:56)
[2024-03-09] MEDS: PROTONIX 40 MG PO (08:17)
[2024-03-09] MEDS: CYMBALTA DELAYED RELEASE 60 MG PO (08:17)
[2024-03-09] MEDS: ULTRAM 50 MG PO ×2 (08:18→19:56)
[2024-03-09] MEDS: TOPAMAX 100 MG PO (08:18)
[2024-03-09] MEDS: VITAMIN D3 (cholecalciferol) 50 MCG PO (08:18)
[2024-03-09] MEDS: NORCO 5/325 1 TABLET PO (08:18)
[2024-03-09] MEDS: ASPIR LOW (ENTERIC COATED) 81 MG PO (08:18)
--- NOTE | 2024-03-09 08:47 | W.PN.HOSP.TC ---
Today's Communication/Plan
-
diet as per GI, npo after midnight for possible ERCP tomorrow
pain control
PT./OT
cont empiric abx
Oncology Consult tomorrow Sunday
Assessment / Plan
Assessment / Plan
Physical Exam
General: Comfortable and Conversant
HEENT: NormoCephalic, Anicteric, Moist mucous membranes, PERRLA, sclera icterus
Respiratory: Clear; No Wheezes, Rales, or Rhonchi
Cardiac: S1/S2, Regular Rhythm systolic murmur 08/07
GI: Soft, Non Distended, Normal Bowel Sounds, Tender right upper quadrant on palpation, No Hepatosplenomegaly
Musculoskeletal: No Clubbing, No Cyanosis
Skin: Jaundice
Neuro: AOx2 disoriented to time
Psych: Calm
79M [facility] ext pmhx including Dementia, CHF, chronic leg edema, brain aneurysm rupture/repair August 1994, CVAs, sz d/o, CAD, HTN, HLD, chronic pain opiate dependent, hypothyroidism, depression, spina bifida/spinal stenosis, bilateral
hypertensive retinopathy p/w RUQ abd pain and jaundice.
#Hyperbilirubinemia with transaminitis concern for choledocholithiasis
-Clear liquid diet
-IV NSS
-IV Zofran
-Continue patient's hydrocodone/acetaminophen 1 tab daily, tramadol 50 mg twice daily
-Blood culture NGTD, lactic acid wnl
-empiric IV Zosyn
- Abd US appreciated
-CT abd/pelvis appreciated severe intrahepatic bile duct dilation, concern for pancreatic head cancer, and dilated gallbladder w cholelithiasis
-Consult GI appreciated diet advanced to low residue npo after midnight for possible ERCP tomorrow Saturday 03/10
-Oncology consult to be requested Saturday 03/10
#Acute agitation with history of Dementia
-Patient given IV Ativan and Haldol in ER for acute agitation
-IV Haldol as needed agitation, has not required since arrival to floor
#Systolic Murmur
Check ECHO Sunday
#CVA hx
Subtle left arm hemiparesis can lift up to face
Aphasia/Dysphagia hx -resolved
#Sz d/o poststroke
-Continue Keppra IV 500 mg twice daily
-Continue Topamax 125 mg daily, 200 mg QPM
#Chronic diastolic heart failure with chronic peripheral edema
I/O, daily weights
venous duplex neg for dvt b/l
#CAD
-cont aspirin 81 mg daily
#reported hx HTN
no home antihypertensives noted
monitor
#HLD
lipid profile appreciated elevated triglycerides cholesterol LDL 170
goal LDL w/ hx stroke <70
cont statin
#Chronic pain on chronic oral opiates due to spinal stenosis
Patient on hydrocodone/acetaminophen 1 tab daily, tramadol 50 mg twice daily, gabapentin 200 mg daily
#Hypothyroidism
-Continue levothyroxine 50 mcg p.o. daily
#Depression
-Continue Cymbalta 60 mg daily
#Vitamin D deficiency
-Continue vitamin D3 50 mcg p.o. daily
#Insomnia
-Continue melatonin 5 mg at bedtime
#Chronic ambulatory dysfunction Hx falls
Patient reports uses walker to ambulate
-PT/OT consult appreciated SNF vs return to LTC
#Hx Bilateral hypertensive retinopathy
DVT prophylaxis Subcu Lovenox
DNR
discussed with patient and GI
updated cousin Bernadette only listed contact for patient. Cousin confirms patient has no POA and makes his own decisions
I spent a total of 50 minutes with the patient or on the floor. More than 50% of this time involved counseling and coordination of care.
Anticipated Discharge: > 48 hours
Subjective/Interval History
-
Date of Service: March 09, 2024
continues to report intermittent abd pain though improved from prior presentation. Denies nausea, wants to eat.
Objective Data
-
Labs:
Laboratory Results
03/09/24
06:31
WBC 12.4 H
Hgb 10.5 L
Hct 31.7 L
Plt Count 274
PT 14.7 H
INR 1.17
Sodium 134 L
Potassium 3.6
Chloride 100
Carbon Dioxide 22
BUN 14
Creatinine 1.0
Glucose 110 H
Calcium 9.1
Total Bilirubin 15.1 H
AST 87 H
ALT 96 H
Alkaline Phosphatase 815 H
Vital Signs:
Vital Signs
Temp Pulse Resp BP Pulse Ox
97.9 F 63 20 145/69 98
03/09/24 07:50 03/09/24 07:50 03/09/24 07:50 03/09/24 07:50 03/09/24 07:50
I&O
03/08/24 03/09/24 03/10/24
06:59 06:59 06:59
Intake Total 600 / 600 1789
Balance 600 / 600 1789
[2024-03-09] MEDS: TOPAMAX 25 MG PO (11:29)
[2024-03-09] MEDS: TYLENOL 650 MG PO (12:12)
--- NOTE | 2024-03-09 14:56 | W.PN.GI.CBS2 ---
Today's Communication / Plan
-
-- food, NPO after midnight
=
Assessment / Plan
-
The patient is a 79-year-old male with a past medical history significant for dementia (but makes his own decisions per the cousin), CVA with mild left-sided weakness, seizures, remote history of brain aneurysm with rupture s/p repair in 1994 at
[place], CAD, hypertension, hyperlipidemia, chronic back pain/spinal stenosis on chronic opiates, hypothyroidism, depression, insomnia, chronic ambulatory dysfunction with history of falls, vitamin D deficiency, hypertensive retinopathy, who
presented to the emergency room with complaints of abdominal pain and obstructive jaundice found to have a pancreatic head mass on CT scan 03/09/24.
He has no pain currently but had been having abdominal pain for at least the past week, noted to be jaundiced by assisted staff.
Other pertinent medical hx:
-CVA with left hemiparesis
-seizures
-hx brain aneurysm with rupture/repair remotely
-CAD
-HTN
-HLD
-chronic back pain on opiates
-hypothyroidism
-depression
-insomnia
-chronic ambulatory dysfunction
-vit d deficiency
-dementia
Recommendations:
-Etiology of current symptoms consistent with biliary obstructive possibly choledocho v mass v stricture v other
-Plan for MRI/MRCP. If he cannot tolerate would do CT to get some cross sectional imaging to evaluate for a mass, discussed with Dr. Goss
-Trend LFT's
-Avoid hepatotoxins
-IV antibiotics with Zosyn
-Check hepatitis serologies
-Monitor for fevers
-If cannot tolerate MRI/MRCP to consider ERCP/EUS on Sunday
-Will need to discuss further with family given his dementia.
-Further management pending above
03/09/24 - due to unavailable MRI - patient sent for CT scan showing a panc head mass
'Severe intrahepatic bile duct dilatation. Ill-defined low-attenuation mass centered at the dori hepatis/head of the pancreas measuring 5.9 x 5.2 x 6.1 cm (series 201, image 34) highly concerning for neoplasm. Limited visualization of the
pancreatic parenchyma. Questionable medial extension of the mass versus separate peripancreatic lymphadenopathy with a region of nodular soft tissue measuring 4.6 x 3.1 cm (series 201, image 30). Significant dilatation of the gallbladder measuring
greater than 13 cm in size. Noncalcified gallstones noted in the gallbladder lumen at the level of the fundus.'
-- discussed with patient with hospitalist at the bedside and discussed with his cousin, Becky ----> all are in agreement of moving forward with EUS/ERCP
-- Becky tells me he makes his own decisions and this is just how he is, but he understands
-- there is a brother but they haven't spoken in 20+yrs (name Rich) - patient asked me NOT to contact him, however, Becky was going to call him
-- low residue diet today, NPO after midnight
-- will need oncology consult to determine if patient wants treatment vs hospice
Total Time Spent with Patient (in minutes): 60
Subjective
Subjective
Date of Service: March 09, 2024
minimal discomfort today, unless you touch his abdomen. no n/v
Objective
Data Reviewed
Laboratory Data:
Laboratory Results
03/09/24 06:31
03/09/24 06:31
Laboratory Results
PT 14.7 Sec (11.4-14.6) H 03/09/24 06:31
INR 1.17 03/09/24 06:31
Total Bilirubin 15.1 mg/dl (0.2-1.3) H 03/09/24 06:31
AST 87 U/L (17-59) H 03/09/24 06:31
ALT 96 U/L (0-50) H 03/09/24 06:31
Alkaline Phosphatase 815 U/L (38-126) H 03/09/24 06:31
Lipase 34 U/L (23-300) 03/07/24 13:14
Vital Signs and I&O:
Vital Signs
Temp Pulse Resp BP Pulse Ox
97.9 F 63 20 145/69 98
03/09/24 07:50 03/09/24 07:50 03/09/24 07:50 03/09/24 07:50 03/09/24 07:50
I&O
03/08/24 03/09/24 03/10/24
06:59 06:59 06:59
Intake Total 600 / 600 0 / 1790
Balance 600 / 600 0 / 1789
Physical Exam
Physical Exam
HEENT: Anicteric (+icteric)
GI: Soft and Tender
Extremities: No Edema
[2024-03-09 15:44] VITALS: BP 138/68
[2024-03-09] MEDS: LIPITOR 20 MG PO (18:44)
[2024-03-09] MEDS: LOVENOX 40 MG SC (18:44)
[2024-03-09] MEDS: TOPAMAX 200 MG PO (18:44)
[2024-03-09] MEDS: MELATONIN 5 MG PO (21:15)
[2024-03-09 23:45] VITALS: BP 96/60
[2024-03-10] VITALS (11 sets, daily range): BP systolic 97–146; BP diastolic 53–79; PULSE 63; BMI 26.5
[2024-03-10] MEDS: ZOSYN 50 IV ×5 (00:12→23:16)
[2024-03-10] MEDS: SYNTHROID 50 MCG PO (05:28)
[2024-03-10 07:46] LABS: % Basophils 0.4 % (0-2); % Eosinophils 5.3 % (0-6); % Immature Granulocytes 0.8 % (0-0.5); % Lymphocytes 4.3 % (20.5-51.1); % Monocytes 8.4 % (1.7-9.3); % Neutrophils 80.8 % (42.2-75.2); Absolute Basophils 0.1 10^3/uL (0-0.2); Absolute Eosinophils 0.7 10^3/uL (0-0.7); Absolute Immature Granulocytes 0.1 10^3/uL (0-0.05); Absolute Lymphocytes 0.6 10^3/uL (1.2-3.4); Absolute Monocytes 1.1 10^3/uL (0.1-0.6); Absolute Neutrophils 10.5 10^3/uL (1.4-6.5); Hematocrit 30.9 % (39.0-52.0); Hemoglobin 10.4 g/dL (13.0-18.0); Mean Corp Hgb Conc. 33.7 g/dL (33.0-37.0); Mean Corpuscular Hgb 27.3 pg (27.0-31.0); Mean Corpuscular Volume 81.1 fL (80.0-94.0); Mean Platelet Volume 9.7 fL (7.4-10.4); Nucleated Red Blood Cells % 0 % (-); Platelet Count 277 10^3/uL (130-400); Red Blood Cell Count 3.81 10^6/uL (4.70-6.10); Red Cell Dist. Width 17.1 % (11.5-14.5); White Blood Cell Count 12.9 10^3/uL (4.8-10.8)
[2024-03-10 08:20] LABS: ALT (SGPT) 82 U/L (0-50); AST (SGOT) 69 U/L (17-59); Albumin 2.9 g/dl (3.5-5.0); Alkaline Phosphatase 738 U/L (38-126); Blood Urea Nitrogen 14 mg/dl (9-20); Calcium 9.2 mg/dl (8.4-10.2); Carbon Dioxide 23 mmol/L (22-30); Chloride 100 mmol/L (98-107); Estimated Creatinine Clearance 77 ml/min; Glucose 105 mg/dl (70-99); Potassium 3.6 mmol/L (3.5-5.1); Sodium 135 mmol/L (135-145); Total Bilirubin 15.2 mg/dl (0.2-1.3); Total Protein 5.8 g/dl (6.3-8.2); eGFR > 60.00
[2024-03-10] MEDS: VITAMIN D3 (cholecalciferol) 50 MCG PO (08:31)
[2024-03-10] MEDS: TOPAMAX 100 MG PO (08:31)
[2024-03-10] MEDS: TOPAMAX 25 MG PO (08:31)
[2024-03-10] MEDS: NEURONTIN 200 MG PO (08:31)
[2024-03-10] MEDS: PROTONIX 40 MG PO (08:31)
[2024-03-10] MEDS: CYMBALTA DELAYED RELEASE 60 MG PO (08:31)
[2024-03-10] MEDS: ULTRAM 50 MG PO ×2 (08:31→20:47)
[2024-03-10] MEDS: NORCO 5/325 1 TABLET PO (08:31)
[2024-03-10] MEDS: ASPIR LOW (ENTERIC COATED) 81 MG PO (08:31)
[2024-03-10] MEDS: KEPPRA 500 MG PO ×2 (08:32→20:46)
--- NOTE | 2024-03-10 14:02 | W.PN.HOSP.TC ---
Today's Communication/Plan
-
planned for EUS/ERCP/FNA today
Assessment / Plan
Assessment / Plan
79M [facility] ext pmhx including Dementia, CHF, chronic leg edema, brain aneurysm rupture/repair August 1994, CVAs, sz d/o, CAD, HTN, HLD, chronic pain opiate dependent, hypothyroidism, depression, spina bifida/spinal stenosis, bilateral
hypertensive retinopathy p/w RUQ abd pain and jaundice.
Assessment:
Hyperbilirubinemia with transaminitis
- CT: Severe intrahepatic bile duct dilatation with an ill-defined soft tissue mass centered in the region of the pancreatic head/dori hepatis that is highly suspicious for pancreatic adenocarcinoma. Cholangiocarcinoma would be an alternative
consideration. Significant dilatation of the gallbladder/gallbladder hydrops containing cholelithiasis.
- NPO currently for planned for EUS/ERCP/FNA today
- continue IVF
- continue pain control and anti-emetics
- Empiric Zosyn continues; cultures so far negative
- eventual Oncology consult
Periodic agitation with history of Dementia
- prn Haldol
Systolic Murmur
- awaiting Echo
CVA hx
- Subtle left arm hemiparesis can lift up to face
- Aphasia/Dysphagia hx - resolved
Sz d/o poststroke
- continue Keppra 500 mg twice daily
- continue Topamax 125 mg daily, 200 mg QPM
Chronic diastolic heart failure with chronic peripheral edema
- monitor I/O, daily weights
- venous duplex neg for dvt b/l
CAD
- cont aspirin 81 mg daily
reported hx HTN
- no home antihypertensives noted
- monitor
HLD
- lipid profile appreciated elevated triglycerides cholesterol LDL 170
- goal LDL w/hx stroke <70
- cont statin
Chronic pain on chronic oral opiates due to spinal stenosis
- patient on hydrocodone/acetaminophen 1 tab daily, tramadol 50 mg twice daily, gabapentin 200 mg daily
Hypothyroidism
- continue levothyroxine 50 mcg p.o. daily
Depression
- continue Cymbalta 60 mg daily
Vitamin D deficiency
- continue vitamin D3 50 mcg p.o. daily
Insomnia
- continue melatonin 5 mg at bedtime
Chronic ambulatory dysfunction Hx falls
- patient reports uses walker to ambulate
- PT/OT consult appreciated SNF vs return to LTC
Hx Bilateral hypertensive retinopathy
DVT ppx: Lovenox
Code: DNR
Anticipated Discharge: > 48 hours
Subjective/Interval History
-
Date of Service: March 10, 2024
no acute complaints
Objective Data
-
Labs:
Laboratory Results
03/10/24
07:27
WBC 12.9 H
Hgb 10.4 L
Hct 30.9 L
Plt Count 277
Sodium 135
Potassium 3.6
Chloride 100
Carbon Dioxide 23
BUN 14
Creatinine 1.0
Glucose 105 H
Calcium 9.2
Total Bilirubin 15.2 H
AST 69 H
ALT 82 H
Alkaline Phosphatase 738 H
Vital Signs:
Vital Signs
Temp Pulse Resp BP Pulse Ox
98 F 68 19 97/65 100
03/10/24 07:53 03/10/24 07:53 03/10/24 07:53 03/10/24 07:53 03/10/24 07:53
I&O
03/09/24 03/10/24 03/11/24
06:59 06:59 06:59
Intake Total 1789 1050 / 1050
Balance 1789 1050 / 1050
Physical Exam
-
General: No Apparent Distress
HEENT: Normocephalic and Atraumatic
Respiratory: Negative Wheezes
Cardiac: Regular Rhythm and S1/S2
GI: Soft
Genito-urinary: No Costovertebral Tender
Musculoskeletal: No Edema
Neuro: AO x 3
Hematologic / Lymphatic: No Lymphadenopathy
Psych: Calm
Data Reviewed
-
Total Time Spent with Patient (in minutes): 45
Labs: Labs Reviewed by me
--- NOTE | 2024-03-10 16:12 | CM ---
manager transmission reviewed patient's chart and spoke with Magali Hart and patient is a long winder tender resident at their facility and plan will be to return to [facility] when stable. Clinical sent through [facility].
Magali Pointwayne
Report [phone]
[2024-03-10 19:24] LABS: Hepatitis B Surface Antigen Negative (Negative)
[2024-03-10 19:28] LABS: Hepatitis A IgM Antibody Negative (Negative)
[2024-03-10 19:41] LABS: Hepatitis B Core Ab, Total Negative (Negative); Hepatitis B Surface Antibody Negative; Hepatitis C Antibody Negative (Negative)
[2024-03-10 19:45] LABS: Hepatitis A Antibody, Total Negative (Negative)
--- NOTE | 2024-03-10 20:30 | PTCARENOTE ---
Pt transferred from PACU. Pt AAOX3, drowsy, able to make needs known, VSS. Pt oriented to unit, call rahman within reach. Will continue with current plan.
[2024-03-10] MEDS: LOVENOX 40 MG SC (20:40)
[2024-03-10] MEDS: LIPITOR 20 MG PO (20:40)
[2024-03-10] MEDS: TOPAMAX 200 MG PO (20:40)
[2024-03-10] MEDS: MELATONIN PO (21:45)
[2024-03-11 05:38] VITALS: BMI 26.7
[2024-03-11] MEDS: SYNTHROID 50 MCG PO (05:43)
[2024-03-11] MEDS: ZOSYN 50 IV ×4 (05:43→23:29)
[2024-03-11 07:56] VITALS: BP 124/69
[2024-03-11 08:42] LABS: % Basophils 0.3 % (0-2); % Eosinophils 0.1 % (0-6); % Immature Granulocytes 0.8 % (0-0.5); % Lymphocytes 3.4 % (20.5-51.1); % Monocytes 5.2 % (1.7-9.3); % Neutrophils 90.2 % (42.2-75.2); Absolute Immature Granulocytes 0.1 10^3/uL (0-0.05); Absolute Lymphocytes 0.5 10^3/uL (1.2-3.4); Absolute Monocytes 0.8 10^3/uL (0.1-0.6); Hematocrit 34.9 % (39.0-52.0); Hemoglobin 11.5 g/dL (13.0-18.0); Mean Corpuscular Hgb 26.7 pg (27.0-31.0); Mean Corpuscular Volume 81.2 fL (80.0-94.0); Mean Platelet Volume 10.1 fL (7.4-10.4); Nucleated Red Blood Cells % 0 % (-); Platelet Count 382 10^3/uL (130-400); Red Cell Dist. Width 17.7 % (11.5-14.5); White Blood Cell Count 15.5 10^3/uL (4.8-10.8)
[2024-03-11] MEDS: ASPIR LOW (ENTERIC COATED) 81 MG PO (08:42)
[2024-03-11] MEDS: VITAMIN D3 (cholecalciferol) 50 MCG PO (08:42)
[2024-03-11] MEDS: CYMBALTA DELAYED RELEASE 60 MG PO (08:42)
[2024-03-11] MEDS: PROTONIX 40 MG PO (08:42)
[2024-03-11] MEDS: TOPAMAX 25 MG PO (08:43)
[2024-03-11] MEDS: NORCO 5/325 1 TABLET PO (08:43)
[2024-03-11] MEDS: TOPAMAX 100 MG PO (08:43)
[2024-03-11] MEDS: NEURONTIN 200 MG PO (08:44)
[2024-03-11] MEDS: ULTRAM 50 MG PO ×2 (08:44→19:59)
[2024-03-11] MEDS: KEPPRA 500 MG PO ×2 (08:44→19:59)
[2024-03-11 09:34] LABS: ALT (SGPT) 75 U/L (0-50); AST (SGOT) 70 U/L (17-59); Albumin 3.2 g/dl (3.5-5.0); Alkaline Phosphatase 758 U/L (38-126); Blood Urea Nitrogen 16 mg/dl (9-20); Calcium 9.7 mg/dl (8.4-10.2); Carbon Dioxide 23 mmol/L (22-30); Chloride 100 mmol/L (98-107); Estimated Creatinine Clearance 77 ml/min; Glucose 108 mg/dl (70-99); Potassium 3.7 mmol/L (3.5-5.1); Sodium 136 mmol/L (135-145); Total Bilirubin 15.9 mg/dl (0.2-1.3); Total Protein 6.2 g/dl (6.3-8.2); eGFR > 60.00
--- NOTE | 2024-03-11 10:36 | CM ---
Addendum entered by Dominique Orellana 03/11/24 12:22:
Spoke with contacts friend Gladys Vidal p# [phone]
Per Gladys yarbrough and Bernadette spoke with MD and are leaning towards hospice at [facility].
Per Gladys they want to speak with GI and are reaching out to patients brother for input, whom the patient has not spoken to in 25 years.
Per Gladys Bernadette is currently having a procedure and is unavailable.
Gladys or Bernadette will call this CM back with their final decision on hospice and hospice choice.
Original Note:
Patient s/p ERCP yesterday.
Patient is LTC at [facility].
Plan: back to [facility] when stable via ambulance transport.
[facility] [facility]
Report [phone]
--- NOTE | 2024-03-11 11:17 | W.PN.HOSP.TC ---
Today's Communication/Plan
-
ongoing GOC discussions, hospice consult
follow GI recs
Assessment / Plan
Assessment / Plan
79M [facility] ext pmhx including Dementia, CHF, chronic leg edema, brain aneurysm rupture/repair August 1994, CVAs, sz d/o, CAD, HTN, HLD, chronic pain opiate dependent, hypothyroidism, depression, spina bifida/spinal stenosis, bilateral
hypertensive retinopathy p/w RUQ abd pain and jaundice.
Assessment:
Hyperbilirubinemia with transaminitis
- CT: Severe intrahepatic bile duct dilatation with an ill-defined soft tissue mass centered in the region of the pancreatic head/dori hepatis that is highly suspicious for pancreatic adenocarcinoma. Cholangiocarcinoma would be an alternative
consideration. Significant dilatation of the gallbladder/gallbladder hydrops containing cholelithiasis.
- s/p EUS 03/10: A mass was identified, favor to be located in the pancreatic head. However this was difficult to determine due to significant anatomical deformity. There was a larger mass which appeared to be a direct extension in the dori hepatis
region. Fine needle aspiration performed. One malignant-appearing lymph node was visualized in the peripancreatic region.
- s/p ERCP 03/10: A single severe biliary stricture was found in the upper third of the main bile duct. The stricture was malignant appearing. The gallbladder, left main hepatic duct and right main hepatic duct were moderately
dilated, with a mass causing an obstruction. A pancreatic sphincterotomy was performed. One plastic stent was placed into the ventral pancreatic duct. A biliary sphincterotomy was performed. Common bile duct was successfully dilated. Failed
placement of a plastic pigtail stent due to inability to traverse the stenosis and failed re-cannulation attempt from surrounding edema.
- may need repeat ERCP if planned for additional stenting attempts, locally or tertiary care.
- continue IVF
- continue pain control and anti-emetics
- continue empiric Zosyn
- eventual Oncology consult if patient/family want to pursue treatment. So far patient declines/family declines to pursue treatment.
Periodic agitation with history of Dementia
- prn Haldol
Systolic Murmur
- Echo: Mild LVH with preserved systolic function, EF 55- 60%. Thickened mitral leaflets with trace mitral regurgitation and normal left atrium. Moderate to severe aortic stenosis with mild aortic regurgitation, peak/mean gradient 55/34 mmHg, aortic
valve area 1.0 cm2. Normal right heart, probably with normal pulmonary artery pressure. Small pericardial and left pleural effusion.
CVA hx
- Subtle left arm hemiparesis can lift up to face
- Aphasia/Dysphagia hx - resolved
Sz d/o poststroke
- continue Keppra 500 mg twice daily
- continue Topamax 125 mg daily, 200 mg QPM
Chronic diastolic heart failure with chronic peripheral edema
- monitor I/O, daily weights
- venous duplex neg for dvt
CAD
- cont aspirin 81 mg daily
reported hx HTN
- no home antihypertensives noted
- monitor
HLD
- lipid profile appreciated elevated triglycerides cholesterol LDL 170
- goal LDL w/hx stroke <70
- cont statin
Chronic pain on chronic oral opiates due to spinal stenosis
- patient on hydrocodone/acetaminophen 1 tab daily, tramadol 50 mg twice daily, gabapentin 200 mg daily
Hypothyroidism
- continue levothyroxine 50 mcg p.o. daily
Depression
- continue Cymbalta 60 mg daily
Vitamin D deficiency
- continue vitamin D3 50 mcg p.o. daily
Insomnia
- continue melatonin 5 mg at bedtime
Chronic ambulatory dysfunction Hx falls
- patient reports uses walker to ambulate
- PT/OT consult appreciated SNF vs return to LTC
Hx Bilateral hypertensive retinopathy
DVT ppx: Lovenox
Code: DNR
Discussed case with Cousin Bernadette [phone] and Bernadette's friend Gladys Marcy [phone]. Hospice consulted. >30 minutes spent in discussions
Anticipated Discharge: > 48 hours
Subjective/Interval History
-
Date of Service: March 11, 2024
reports intermittent abdominal pain
on clears, tolerating
Objective Data
-
Labs:
Laboratory Results
03/11/24
08:09
WBC 15.5 H
Hgb 11.5 L
Hct 34.9 L
Plt Count 382 D
Sodium 136
Potassium 3.7
Chloride 100
Carbon Dioxide 23
BUN 16
Creatinine 1.0
Glucose 108 H
Calcium 9.7
Total Bilirubin 15.9 H
AST 70 H
ALT 75 H
Alkaline Phosphatase 758 H
Vital Signs:
Vital Signs
Temp Pulse Resp BP Pulse Ox
97.6 F 77 16 124/69 100
03/11/24 07:56 03/11/24 07:56 03/11/24 07:56 03/11/24 07:56 03/11/24 07:56
I&O
03/10/24 03/11/24 03/12/24
06:59 06:59 06:59
Intake Total 1050 / 1050 360 / 360
Balance 1050 / 1050 360 / 360
Physical Exam
-
General: No Apparent Distress
HEENT: Normocephalic and Atraumatic
Respiratory: Negative Wheezes
Cardiac: Regular Rhythm and S1/S2
GI: Soft
Skin: Jaundice
Neuro: Awake
Psych: Confused and Apparent Dementia
Data Reviewed
-
Total Time Spent with Patient (in minutes): 51
Labs: Labs Reviewed by me
--- NOTE | 2024-03-11 14:09 | W.PN.GI.CBS2 ---
Today's Communication / Plan
-
trend bili & wbc, monitor for fevers, family discussion
Assessment / Plan
-
The patient is a 79-year-old male with a past medical history significant for dementia (but makes his own decisions per the cousin), CVA with mild left-sided weakness, seizures, remote history of brain aneurysm with rupture s/p repair in 1994 at
[place], CAD, hypertension, hyperlipidemia, chronic back pain/spinal stenosis on chronic opiates, hypothyroidism, depression, insomnia, chronic ambulatory dysfunction with history of falls, vitamin D deficiency, hypertensive retinopathy, who
presented to the emergency room with complaints of abdominal pain and obstructive jaundice found to have a pancreatic head mass on CT scan 03/09/24.
He has no pain currently but had been having abdominal pain for at least the past week, noted to be jaundiced by jail staff.
Other pertinent medical hx:
-CVA with left hemiparesis
-seizures
-hx brain aneurysm with rupture/repair remotely
-CAD
-HTN
-HLD
-chronic back pain on opiates
-hypothyroidism
-depression
-insomnia
-chronic ambulatory dysfunction
-vit d deficiency
-dementia
Found to have panc mass. ERCP for stent was technically difficult 03/10 not completed.
On discussion with hospitalist, patient would like to pursue hospice. Hospice has been consulted. Usually, stenting is done even as a palliative measure to prevent risk of infection and also to help with potential symptoms of the
hyperbilirubinemia such as pruritus. Patient however does not wish to pursue further procedures although it unclear to what degree he is able to make his decisions as he does have some level of dementia. His next of kin Bernadette is undergoing a bone
marrow biopsy today and is unable to discuss with me directly. I did discuss with her friend Gladys who is listed as a point of contact but she is a friend of the family and not a direct relative. He also has a brother who has not spoken to in over
20 years.
There is no evidence of cholangitis at this time with no fevers although white count is slightly elevated. Therefore, I will wait until tomorrow to be able to discuss with cousin Bernadette who makes decisions for him. We could also attempt to pursue
a roundtrip procedure instead of a transfer if the family prefers.
Subjective
Subjective
Date of Service: March 11, 2024
no complaints
Objective
Data Reviewed
Laboratory Data:
Laboratory Results
03/11/24 08:09
03/11/24 08:09
Laboratory Results
PT 14.7 Sec (11.4-14.6) H 03/09/24 06:31
INR 1.17 03/09/24 06:31
Total Bilirubin 15.9 mg/dl (0.2-1.3) H 03/11/24 08:09
AST 70 U/L (17-59) H 03/11/24 08:09
ALT 75 U/L (0-50) H 03/11/24 08:09
Alkaline Phosphatase 758 U/L (38-126) H 03/11/24 08:09
Lipase 34 U/L (23-300) 03/07/24 13:14
Vital Signs and I&O:
Vital Signs
Temp Pulse Resp BP Pulse Ox
97.6 F 77 16 124/69 100
03/11/24 07:56 03/11/24 07:56 03/11/24 07:56 03/11/24 07:56 03/11/24 07:56
I&O
03/10/24 03/11/24 03/12/24
06:59 06:59 06:59
Intake Total 1050 / 1050 360 / 360
Balance 1050 / 1050 360 / 360
Physical Exam
Physical Exam
HEENT: Other (jaundiced)
Cardiology: Normal Sinus Rhythm
Pulmonary: Clear
GI: Non Distended and Non Tender
[2024-03-11 15:24] VITALS: BP 121/61
[2024-03-11] MEDS: LOVENOX 40 MG SC (17:34)
[2024-03-11] MEDS: LIPITOR 20 MG PO (17:34)
[2024-03-11] MEDS: TOPAMAX 200 MG PO (17:34)
[2024-03-11] MEDS: DESENEX/MITRAZOL/ZEASORB 1 APPLIC TOPICAL (19:59)
[2024-03-11] MEDS: MELATONIN 5 MG PO (20:00)
[2024-03-11 23:40] VITALS: BP 110/59
[2024-03-12 05:01] VITALS: BMI 26.0
[2024-03-12] MEDS: SYNTHROID 50 MCG PO (05:30)
[2024-03-12] MEDS: ZOSYN 50 IV ×3 (05:31→17:54)
[2024-03-12 07:36] VITALS: BP 122/65
[2024-03-12] MEDS: ASPIR LOW (ENTERIC COATED) 81 MG PO (08:00)
[2024-03-12] MEDS: PROTONIX 40 MG PO (08:00)
[2024-03-12] MEDS: CYMBALTA DELAYED RELEASE 60 MG PO (08:00)
[2024-03-12] MEDS: NEURONTIN 200 MG PO (08:00)
[2024-03-12] MEDS: TOPAMAX 25 MG PO (08:00)
[2024-03-12] MEDS: TOPAMAX 100 MG PO (08:00)
[2024-03-12] MEDS: ULTRAM 50 MG PO ×2 (08:00→21:00)
[2024-03-12] MEDS: KEPPRA 500 MG PO ×2 (08:00→21:00)
[2024-03-12] MEDS: DESENEX/MITRAZOL/ZEASORB 1 APPLIC TOPICAL ×2 (08:00→21:01)
[2024-03-12] MEDS: NORCO 5/325 1 TABLET PO (08:00)
[2024-03-12] MEDS: VITAMIN D3 (cholecalciferol) 50 MCG PO (08:00)
[2024-03-12 08:47] LABS: % Basophils 0.3 % (0-2); % Eosinophils 2.1 % (0-6); % Immature Granulocytes 0.8 % (0-0.5); % Lymphocytes 2.9 % (20.5-51.1); % Monocytes 5.9 % (1.7-9.3); Absolute Basophils 0.1 10^3/uL (0-0.2); Absolute Eosinophils 0.4 10^3/uL (0-0.7); Absolute Immature Granulocytes 0.1 10^3/uL (0-0.05); Absolute Lymphocytes 0.5 10^3/uL (1.2-3.4); Absolute Neutrophils 14.9 10^3/uL (1.4-6.5); Hemoglobin 11.1 g/dL (13.0-18.0); Mean Corp Hgb Conc. 33.6 g/dL (33.0-37.0); Mean Corpuscular Hgb 26.7 pg (27.0-31.0); Mean Corpuscular Volume 79.5 fL (80.0-94.0); Mean Platelet Volume 9.8 fL (7.4-10.4); Nucleated Red Blood Cells % 0 % (-); Platelet Count 349 10^3/uL (130-400); Red Blood Cell Count 4.15 10^6/uL (4.70-6.10); Red Cell Dist. Width 18.3 % (11.5-14.5); White Blood Cell Count 16.9 10^3/uL (4.8-10.8)
[2024-03-12 10:08] LABS: ALT (SGPT) 67 U/L (0-50); AST (SGOT) 83 U/L (17-59); Albumin 3.1 g/dl (3.5-5.0); Alkaline Phosphatase 764 U/L (38-126); Blood Urea Nitrogen 18 mg/dl (9-20); Calcium 9.4 mg/dl (8.4-10.2); Carbon Dioxide 23 mmol/L (22-30); Chloride 98 mmol/L (98-107); Estimated Creatinine Clearance 70 ml/min; Glucose 84 mg/dl (70-99); Potassium 3.6 mmol/L (3.5-5.1); Sodium 136 mmol/L (135-145); Total Bilirubin 15.9 mg/dl (0.2-1.3); Total Protein 6.3 g/dl (6.3-8.2); eGFR > 60.00
--- NOTE | 2024-03-12 12:13 | W.PN.HOSP.TC ---
Today's Communication/Plan
-
family/friends/estranged brother in [place] to pursue hospice care without further testing/procedures
GI/Hospice/CM made aware for DC in 24 hours to SNF where hospice can begin.
Assessment / Plan
Assessment / Plan
79M [facility] ext pmhx including Dementia, CHF, chronic leg edema, brain aneurysm rupture/repair August 1994, CVAs, sz d/o, CAD, HTN, HLD, chronic pain opiate dependent, hypothyroidism, depression, spina bifida/spinal stenosis, bilateral
hypertensive retinopathy p/w RUQ abd pain and jaundice.
Assessment:
Hyperbilirubinemia with transaminitis
- CT: Severe intrahepatic bile duct dilatation with an ill-defined soft tissue mass centered in the region of the pancreatic head/dori hepatis that is highly suspicious for pancreatic adenocarcinoma. Cholangiocarcinoma would be an alternative
consideration. Significant dilatation of the gallbladder/gallbladder hydrops containing cholelithiasis.
- s/p EUS 03/10: A mass was identified, favor to be located in the pancreatic head. However this was difficult to determine due to significant anatomical deformity. There was a larger mass which appeared to be a direct extension in the dori hepatis
region. Fine needle aspiration performed. One malignant-appearing lymph node was visualized in the peripancreatic region.
- s/p ERCP 03/10: A single severe biliary stricture was found in the upper third of the main bile duct. The stricture was malignant appearing. The gallbladder, left main hepatic duct and right main hepatic duct were moderately
dilated, with a mass causing an obstruction. A pancreatic sphincterotomy was performed. One plastic stent was placed into the ventral pancreatic duct. A biliary sphincterotomy was performed. Common bile duct was successfully dilated. Failed
placement of a plastic pigtail stent due to inability to traverse the stenosis and failed re-cannulation attempt from surrounding edema.
- may need repeat ERCP if planned for additional stenting attempts, locally or tertiary care.
- continue IVF
- continue pain control and anti-emetics
- continue empiric Zosyn
- eventual Oncology consult if patient/family want to pursue treatment. So far patient declines/family declines to pursue treatment.
Periodic agitation with history of Dementia
- prn Haldol
Systolic Murmur
- Echo: Mild LVH with preserved systolic function, EF 55- 60%. Thickened mitral leaflets with trace mitral regurgitation and normal left atrium. Moderate to severe aortic stenosis with mild aortic regurgitation, peak/mean gradient 55/34 mmHg, aortic
valve area 1.0 cm2. Normal right heart, probably with normal pulmonary artery pressure. Small pericardial and left pleural effusion.
CVA hx
- Subtle left arm hemiparesis can lift up to face
- Aphasia/Dysphagia hx - resolved
Sz d/o poststroke
- continue Keppra 500 mg twice daily
- continue Topamax 125 mg daily, 200 mg QPM
Chronic diastolic heart failure with chronic peripheral edema
- monitor I/O, daily weights
- venous duplex neg for dvt
CAD
- cont aspirin 81 mg daily
reported hx HTN
- no home antihypertensives noted
- monitor
HLD
- lipid profile appreciated elevated triglycerides cholesterol LDL 170
- goal LDL w/hx stroke <70
- cont statin
Chronic pain on chronic oral opiates due to spinal stenosis
- patient on hydrocodone/acetaminophen 1 tab daily, tramadol 50 mg twice daily, gabapentin 200 mg daily
Hypothyroidism
- continue levothyroxine 50 mcg p.o. daily
Depression
- continue Cymbalta 60 mg daily
Vitamin D deficiency
- continue vitamin D3 50 mcg p.o. daily
Insomnia
- continue melatonin 5 mg at bedtime
Chronic ambulatory dysfunction Hx falls
- patient reports uses walker to ambulate
- PT/OT consult appreciated SNF vs return to LTC
Hx Bilateral hypertensive retinopathy
DVT ppx: Lovenox
Code: DNR
03/11: Discussed case with Cousin Bernadette [phone] and Bernadette's friend Gladys Marcy [phone]. Hospice consulted. >30 minutes spent in discussions.
03/12: Discussed case with Cousin Bernadette [phone] and Bernadette's friend Gladys Vidal [phone] again today, both confirm along with patients estranged Brother Rich. All in agreement to proceed with hospice care given poor prognosis. They opt
against further procedures.
Dispo: plan DC back to SNF and start hospice in 24 hours. CM/hospice/GI contacted.
Anticipated Discharge: Within 24 hours
Subjective/Interval History
-
Date of Service: March 12, 2024
remains jaundiced, poor oral intake
Objective Data
-
Labs:
Laboratory Results
03/12/24
08:33
WBC 16.9 H
Hgb 11.1 L
Hct 33.0 L
Plt Count 349
Sodium 136
Potassium 3.6
Chloride 98
Carbon Dioxide 23
BUN 18
Creatinine 1.1
Glucose 84
Calcium 9.4
Total Bilirubin 15.9 H
AST 83 H
ALT 67 H
Alkaline Phosphatase 764 H
Vital Signs:
Vital Signs
Temp Pulse Resp BP Pulse Ox
98.3 F 64 18 122/65 95
03/12/24 07:36 03/12/24 07:36 03/12/24 07:36 03/12/24 07:36 03/12/24 08:00
I&O
03/11/24 03/12/24 03/13/24
06:59 06:59 06:59
Intake Total 360 / 360 700 / 700
Balance 360 / 360 700 / 700
Physical Exam
-
General: No Apparent Distress
HEENT: Normocephalic and Atraumatic
Respiratory: Negative Wheezes
Cardiac: Regular Rhythm and S1/S2
GI: Soft
Neuro: AO x 3
Hematologic / Lymphatic: No Lymphadenopathy
Psych: Calm
Data Reviewed
-
Total Time Spent with Patient (in minutes): 42
Labs: Labs Reviewed by me
--- NOTE | 2024-03-12 14:27 | CM ---
Addendum entered by Dominique Orellana 03/12/24 14:35:
Ambulance transport forms on chart.
Original Note:
Spoke with Bernadette/patients contact re hospice choices.
Bernadette did not want to make the decision and asked for CM to please call Rich, patients brother.
TC to Rich [phone], options provided, he chose [facility].
Referral via [facility].
Outpatient DNR on the front of the chart to be signed.
Plan: back to [facility] when stable via ambulance transport.
[facility]
Report [phone]
[2024-03-12 15:48] VITALS: BP 131/71
--- NOTE | 2024-03-12 16:22 | W.PN.GI.CBS2 ---
Today's Communication / Plan
-
likely reattempt ercp tomorrow
Assessment / Plan
-
The patient is a 79-year-old male with a past medical history significant for dementia (but makes his own decisions per the cousin), CVA with mild left-sided weakness, seizures, remote history of brain aneurysm with rupture s/p repair in 1994 at
[place], CAD, hypertension, hyperlipidemia, chronic back pain/spinal stenosis on chronic opiates, hypothyroidism, depression, insomnia, chronic ambulatory dysfunction with history of falls, vitamin D deficiency, hypertensive retinopathy, who
presented to the emergency room with complaints of abdominal pain and obstructive jaundice found to have a pancreatic head mass on CT scan 03/09/24.
He has no pain currently but had been having abdominal pain for at least the past week, noted to be jaundiced by long term staff.
Other pertinent medical hx:
-CVA with left hemiparesis
-seizures
-hx brain aneurysm with rupture/repair remotely
-CAD
-HTN
-HLD
-chronic back pain on opiates
-hypothyroidism
-depression
-insomnia
-chronic ambulatory dysfunction
-vit d deficiency
-dementia
Found to have panc mass. ERCP for stent was technically difficult 03/10 not completed.
On discussion with hospitalist, patient/family would like to pursue hospice. Hospice has been consulted. Usually, stenting is done even as a palliative measure to prevent risk of infection and also to help with potential symptoms of the
hyperbilirubinemia such as pruritus.
I discussed at length with Bernadette who was very anxious and could not have a discussion with me on the phone who is the cousin who is the NOK for him. I s/w Gladys who is the friend who is listed as point of contact. Bernadette also wants me to involve
Salvador's brother but it is documented Salvador does NOT want him involved and they have been estranged for 20 years.
I spoke at length and also d/w Dr. Lutz at [facility], Dr. Segovia advanced endo here at . I gave Bernadette/Gladys options: 1) reattempt ERCP here; 2) attempt ERCP at [facility]; 3) IR perc drain; 4) nothing. Bernadette could not make any decision but Gladys
will discuss again with Bernadette and she thinks most likely she will pursue repeat ERCP here understanding this is palliative to help with comfort measures. I will place him tentative on schedule and will be done Th vs Sun.
S/w and updated hospitalist and computer scientist as well.
Total Time Spent with Patient (in minutes): 50
Subjective
Subjective
Date of Service: March 12, 2024
no events overnight
Objective
Data Reviewed
Laboratory Data:
Laboratory Results
03/12/24 08:33
03/12/24 08:33
Laboratory Results
PT 14.7 Sec (11.4-14.6) H 03/09/24 06:31
INR 1.17 03/09/24 06:31
Total Bilirubin 15.9 mg/dl (0.2-1.3) H 03/12/24 08:33
AST 83 U/L (17-59) H 03/12/24 08:33
ALT 67 U/L (0-50) H 03/12/24 08:33
Alkaline Phosphatase 764 U/L (38-126) H 03/12/24 08:33
Lipase 34 U/L (23-300) 03/07/24 13:14
Vital Signs and I&O:
Vital Signs
Temp Pulse Resp BP Pulse Ox
97.5 F 74 18 131/71 96
03/12/24 15:48 03/12/24 15:48 03/12/24 15:48 03/12/24 15:48 03/12/24 15:48
I&O
03/11/24 03/12/24 03/13/24
06:59 06:59 06:59
Intake Total 360 / 360 700 / 700
Balance 360 / 360 700 / 700
Physical Exam
Physical Exam
HEENT: Other (deeply jaundiced)
Cardiology: Normal Sinus Rhythm
Pulmonary: Clear
GI: Non Distended and Non Tender
[2024-03-12] MEDS: TOPAMAX 200 MG PO (17:53)
[2024-03-12] MEDS: LOVENOX 40 MG SC (17:54)
[2024-03-12] MEDS: LIPITOR 20 MG PO (17:54)
[2024-03-12] MEDS: MELATONIN 5 MG PO (21:00)
[2024-03-12 23:38] VITALS: BP 102/53
[2024-03-13] VITALS (12 sets, daily range): BP systolic 115–146; BP diastolic 59–80; BMI 25.9
[2024-03-13] MEDS: HALDOL 1 MG IV ×2 (00:47→05:52)
[2024-03-13] MEDS: ZOSYN 50 IV ×5 (00:49→23:12)
[2024-03-13] MEDS: SYNTHROID 50 MCG PO (05:25)
--- NOTE | 2024-03-13 06:28 | PTCARENOTE ---
Pt agitated, cursing at staff, attempting to hit and kick. pt given prn Haldol throughout night. Pt refusing morning EKG.
[2024-03-13 08:06] LABS: % Basophils 0.3 % (0-2); % Eosinophils 2.4 % (0-6); % Immature Granulocytes 1.1 % (0-0.5); % Lymphocytes 3.1 % (20.5-51.1); % Monocytes 6.4 % (1.7-9.3); % Neutrophils 86.7 % (42.2-75.2); Absolute Basophils 0.1 10^3/uL (0-0.2); Absolute Eosinophils 0.4 10^3/uL (0-0.7); Absolute Immature Granulocytes 0.2 10^3/uL (0-0.05); Absolute Lymphocytes 0.5 10^3/uL (1.2-3.4); Absolute Monocytes 1.1 10^3/uL (0.1-0.6); Absolute Neutrophils 14.3 10^3/uL (1.4-6.5); Hematocrit 31.6 % (39.0-52.0); Hemoglobin 10.7 g/dL (13.0-18.0); Mean Corp Hgb Conc. 33.9 g/dL (33.0-37.0); Mean Corpuscular Hgb 27.6 pg (27.0-31.0); Mean Corpuscular Volume 81.7 fL (80.0-94.0); Nucleated Red Blood Cells % 0 % (-); Platelet Count 327 10^3/uL (130-400); Red Blood Cell Count 3.87 10^6/uL (4.70-6.10); Red Cell Dist. Width 18.8 % (11.5-14.5); White Blood Cell Count 16.5 10^3/uL (4.8-10.8)
[2024-03-13 08:19] LABS: ALT (SGPT) 60 U/L (0-50); AST (SGOT) 83 U/L (17-59); Albumin 2.9 g/dl (3.5-5.0); Alkaline Phosphatase 731 U/L (38-126); Blood Urea Nitrogen 16 mg/dl (9-20); Calcium 9.3 mg/dl (8.4-10.2); Carbon Dioxide 24 mmol/L (22-30); Chloride 98 mmol/L (98-107); Estimated Creatinine Clearance 85 ml/min; Glucose 80 mg/dl (70-99); Potassium 3.5 mmol/L (3.5-5.1); Sodium 135 mmol/L (135-145); Total Bilirubin 15.6 mg/dl (0.2-1.3); Total Protein 5.9 g/dl (6.3-8.2); eGFR > 60.00
[2024-03-13] MEDS: ASPIR LOW (ENTERIC COATED) 81 MG PO (08:59)
[2024-03-13] MEDS: ULTRAM 50 MG PO ×2 (08:59→21:09)
[2024-03-13] MEDS: CYMBALTA DELAYED RELEASE 60 MG PO (08:59)
[2024-03-13] MEDS: TOPAMAX 25 MG PO (09:00)
[2024-03-13] MEDS: KEPPRA 500 MG PO ×2 (09:00→21:09)
[2024-03-13] MEDS: TOPAMAX 100 MG PO (09:00)
[2024-03-13] MEDS: NEURONTIN 200 MG PO (09:00)
[2024-03-13] MEDS: PROTONIX 40 MG PO (09:00)
[2024-03-13] MEDS: NORCO 5/325 1 TABLET PO (09:00)
[2024-03-13] MEDS: VITAMIN D3 (cholecalciferol) 50 MCG PO (09:00)
[2024-03-13] MEDS: DESENEX/MITRAZOL/ZEASORB 1 APPLIC TOPICAL ×2 (09:01→21:08)
--- NOTE | 2024-03-13 10:19 | W.PN.GI.CBS2 ---
Today's Communication / Plan
-
ercp today or tomorrow
Assessment / Plan
-
The patient is a 79-year-old male with a past medical history significant for dementia (but makes his own decisions per the cousin), CVA with mild left-sided weakness, seizures, remote history of brain aneurysm with rupture s/p repair in 1994 at
[place], CAD, hypertension, hyperlipidemia, chronic back pain/spinal stenosis on chronic opiates, hypothyroidism, depression, insomnia, chronic ambulatory dysfunction with history of falls, vitamin D deficiency, hypertensive retinopathy, who
presented to the emergency room with complaints of abdominal pain and obstructive jaundice found to have a pancreatic head mass on CT scan 03/09/24.
He has no pain currently but had been having abdominal pain for at least the past week, noted to be jaundiced by intermediate staff.
Other pertinent medical hx:
-CVA with left hemiparesis
-seizures
-hx brain aneurysm with rupture/repair remotely
-CAD
-HTN
-HLD
-chronic back pain on opiates
-hypothyroidism
-depression
-insomnia
-chronic ambulatory dysfunction
-vit d deficiency
-dementia
Found to have panc mass. ERCP for stent was technically difficult 03/10 not completed.
On discussion with hospitalist, patient/family would like to pursue hospice. Hospice has been consulted. Usually, stenting is done even as a palliative measure to prevent risk of infection and also to help with potential symptoms of the
hyperbilirubinemia such as pruritus.
D/w Bernadette today - agreeable to one more attempt at ERCP here at if not successful does not want any other intervention.
Consent obtained r/a/b reviewed including risk of bleeding, infection, perforation, pancreatitis.
After ERCP will be transferred to hospice.
D/w hospitalist, Dr. Luca polo endo and devops.
Subjective
Subjective
Date of Service: March 13, 2024
only able to tolerate liquids
still with nausea and dysphagia
Objective
Data Reviewed
Laboratory Data:
Laboratory Results
03/13/24 06:44
03/13/24 06:44
Laboratory Results
PT 14.7 Sec (11.4-14.6) H 03/09/24 06:31
INR 1.17 03/09/24 06:31
Total Bilirubin 15.6 mg/dl (0.2-1.3) H 03/13/24 06:44
AST 83 U/L (17-59) H 03/13/24 06:44
ALT 60 U/L (0-50) H 03/13/24 06:44
Alkaline Phosphatase 731 U/L (38-126) H 03/13/24 06:44
Lipase 34 U/L (23-300) 03/07/24 13:14
Vital Signs and I&O:
Vital Signs
Temp Pulse Resp BP Pulse Ox
98.3 F 60 10 127/68 97
03/13/24 07:00 03/13/24 07:00 03/13/24 07:00 03/13/24 07:00 03/13/24 07:00
I&O
03/12/24 03/13/24 03/14/24
06:59 06:59 06:59
Intake Total 700 / 700
Balance 700 / 700
Physical Exam
Physical Exam
HEENT: Anicteric
Cardiology: Normal Sinus Rhythm
Pulmonary: Clear
GI: Non Distended and Non Tender
--- NOTE | 2024-03-13 13:51 | W.PN.HOSP.TC ---
Today's Communication/Plan
-
repeat ERCP for palliative stenting today
DC planning to hospice/SNF
Assessment / Plan
Assessment / Plan
79M [facility] ext pmhx including Dementia, CHF, chronic leg edema, brain aneurysm rupture/repair August 1994, CVAs, sz d/o, CAD, HTN, HLD, chronic pain opiate dependent, hypothyroidism, depression, spina bifida/spinal stenosis, bilateral
hypertensive retinopathy p/w RUQ abd pain and jaundice.
Assessment:
Hyperbilirubinemia with transaminitis
- CT: Severe intrahepatic bile duct dilatation with an ill-defined soft tissue mass centered in the region of the pancreatic head/dori hepatis that is highly suspicious for pancreatic adenocarcinoma. Cholangiocarcinoma would be an alternative
consideration. Significant dilatation of the gallbladder/gallbladder hydrops containing cholelithiasis.
- s/p EUS 03/10: A mass was identified, favor to be located in the pancreatic head. However this was difficult to determine due to significant anatomical deformity. There was a larger mass which appeared to be a direct extension in the dori hepatis
region. Fine needle aspiration performed. One malignant-appearing lymph node was visualized in the peripancreatic region.
- s/p ERCP 03/10: A single severe biliary stricture was found in the upper third of the main bile duct. The stricture was malignant appearing. The gallbladder, left main hepatic duct and right main hepatic duct were moderately
dilated, with a mass causing an obstruction. A pancreatic sphincterotomy was performed. One plastic stent was placed into the ventral pancreatic duct. A biliary sphincterotomy was performed. Common bile duct was successfully dilated. Failed
placement of a plastic pigtail stent due to inability to traverse the stenosis and failed re-cannulation attempt from surrounding edema.
- for repeat ERCP for palliative stenting today
- continue IVF
- continue pain control and anti-emetics
- continue empiric Zosyn, day 5
- eventual Oncology consult if patient/family want to pursue treatment. So far patient declines/family declines to pursue treatment.
Periodic agitation with history of Dementia
- prn Haldol
Systolic Murmur
- Echo: Mild LVH with preserved systolic function, EF 55- 60%. Thickened mitral leaflets with trace mitral regurgitation and normal left atrium. Moderate to severe aortic stenosis with mild aortic regurgitation, peak/mean gradient 55/34 mmHg, aortic
valve area 1.0 cm2. Normal right heart, probably with normal pulmonary artery pressure. Small pericardial and left pleural effusion.
CVA hx
- Subtle left arm hemiparesis can lift up to face
- Aphasia/Dysphagia hx - resolved
Sz d/o poststroke
- continue Keppra 500 mg twice daily
- continue Topamax 125 mg daily, 200 mg QPM
Chronic diastolic heart failure with chronic peripheral edema
- monitor I/O, daily weights
- venous duplex neg for dvt
CAD
- cont aspirin 81 mg daily
reported hx HTN
- no home antihypertensives noted
- monitor
HLD
- lipid profile appreciated elevated triglycerides cholesterol LDL 170
- goal LDL w/hx stroke <70
- cont statin
Chronic pain on chronic oral opiates due to spinal stenosis
- patient on hydrocodone/acetaminophen 1 tab daily, tramadol 50 mg twice daily, gabapentin 200 mg daily
Hypothyroidism
- continue levothyroxine 50 mcg p.o. daily
Depression
- continue Cymbalta 60 mg daily
Vitamin D deficiency
- continue vitamin D3 50 mcg p.o. daily
Insomnia
- continue melatonin 5 mg at bedtime
Chronic ambulatory dysfunction Hx falls
- patient reports uses walker to ambulate
- PT/OT consult appreciated SNF vs return to LTC
Hx Bilateral hypertensive retinopathy
DVT ppx: Lovenox
Code: DNR
03/11: Discussed case with Bradley Fleming [phone] and Bernadette's friend Gladys Vidal [phone]. Hospice consulted. >30 minutes spent in discussions.
03/12: Discussed case with Bradley Fleming [phone] and Bernadette's friend Gladys Vidal [phone] again today, both confirm along with patients estranged Brother Rich. All in agreement to proceed with hospice care given poor prognosis. They opt
against further procedures.
03/13: Bernadette ok to proceed with repeat ERCP for palliative stenting today.
Dispo: plan DC back to SNF and start hospice in 24 hours pending procedure results today. CM/hospice/GI contacted.
Anticipated Discharge: Within 24 hours
Subjective/Interval History
-
Date of Service: March 13, 2024
only tolerating liquids
remains with pain, nausea
for palliative ERCP attempt again
Objective Data
-
Labs:
Laboratory Results
03/13/24
06:44
WBC 16.5 H
Hgb 10.7 L
Hct 31.6 L
Plt Count 327
Sodium 135
Potassium 3.5
Chloride 98
Carbon Dioxide 24
BUN 16
Creatinine 0.9
Glucose 80
Calcium 9.3
Total Bilirubin 15.6 H
AST 83 H
ALT 60 H
Alkaline Phosphatase 731 H
Vital Signs:
Vital Signs
Temp Pulse Resp BP Pulse Ox
98.3 F 60 10 127/68 97
03/13/24 07:00 03/13/24 07:00 03/13/24 07:00 03/13/24 07:00 03/13/24 07:00
I&O
03/12/24 03/13/24 03/14/24
06:59 06:59 06:59
Intake Total 700 / 700
Balance 700 / 700
Physical Exam
-
General: No Apparent Distress
HEENT: Normocephalic
Respiratory: Clear to Auscultation; Negative Wheezes
Cardiac: Regular Rhythm and S1/S2
GI: Soft
Genito-urinary: No Costovertebral Tender
Musculoskeletal: No Edema
Neuro: AO x 3
Hematologic / Lymphatic: No Lymphadenopathy
Psych: Calm
Data Reviewed
-
Total Time Spent with Patient (in minutes): 42
Labs: Labs Reviewed by me
[2024-03-13] MEDS: LOVENOX 40 MG SC (17:45)
[2024-03-13] MEDS: LIPITOR 20 MG PO (17:45)
[2024-03-13] MEDS: TOPAMAX 200 MG PO (17:45)
[2024-03-13] MEDS: MELATONIN 5 MG PO (21:09)
--- NOTE | 2024-03-13 21:31 | PTCARENOTE ---
patient arrived back from PACU around 21:00 via stretcher. Patient drowsy but Alert. Denies discomfort at current time. Vitals stable.
[2024-03-14 00:03] VITALS: BP 98/52
[2024-03-14 04:03] VITALS: BP 112/61
[2024-03-14] MEDS: SYNTHROID 50 MCG PO (05:48)
[2024-03-14] MEDS: ZOSYN 50 IV ×2 (05:48→12:41)
[2024-03-14 06:00] VITALS: BMI 25.9
[2024-03-14 07:03] LABS: % Basophils 0.2 % (0-2); % Eosinophils 0.1 % (0-6); % Immature Granulocytes 0.8 % (0-0.5); % Monocytes 4.1 % (1.7-9.3); % Neutrophils 92.8 % (42.2-75.2); Absolute Immature Granulocytes 0.1 10^3/uL (0-0.05); Absolute Lymphocytes 0.3 10^3/uL (1.2-3.4); Absolute Monocytes 0.7 10^3/uL (0.1-0.6); Absolute Neutrophils 15.3 10^3/uL (1.4-6.5); Hemoglobin 10.4 g/dL (13.0-18.0); Mean Corp Hgb Conc. 33.5 g/dL (33.0-37.0); Mean Corpuscular Hgb 27.7 pg (27.0-31.0); Mean Corpuscular Volume 82.4 fL (80.0-94.0); Mean Platelet Volume 9.7 fL (7.4-10.4); Nucleated Red Blood Cells % 0 % (-); Platelet Count 309 10^3/uL (130-400); Red Blood Cell Count 3.76 10^6/uL (4.70-6.10); White Blood Cell Count 16.5 10^3/uL (4.8-10.8)
[2024-03-14 07:29] LABS: ALT (SGPT) 57 U/L (0-50); AST (SGOT) 72 U/L (17-59); Albumin 2.7 g/dl (3.5-5.0); Alkaline Phosphatase 612 U/L (38-126); Blood Urea Nitrogen 19 mg/dl (9-20); Calcium 9.1 mg/dl (8.4-10.2); Carbon Dioxide 22 mmol/L (22-30); Chloride 99 mmol/L (98-107); Estimated Creatinine Clearance 77 ml/min; Glucose 93 mg/dl (70-99); Potassium 3.7 mmol/L (3.5-5.1); Sodium 135 mmol/L (135-145); Total Bilirubin 12.1 mg/dl (0.2-1.3); Total Protein 5.5 g/dl (6.3-8.2); eGFR > 60.00
[2024-03-14 07:30] VITALS: BP 148/80
--- NOTE | 2024-03-14 09:08 | W.PN.UPDATE ---
Update Note
Progress Note Update
ERCP performed yesterday with stent placement to CBD; LFT improving today. Can advance diet. Will s/o, call with questions.
[2024-03-14] MEDS: PROTONIX 40 MG PO (09:47)
[2024-03-14] MEDS: KEPPRA 500 MG PO (09:47)
[2024-03-14] MEDS: ASPIR LOW (ENTERIC COATED) 81 MG PO (09:47)
[2024-03-14] MEDS: NEURONTIN 200 MG PO (09:47)
[2024-03-14] MEDS: TOPAMAX 100 MG PO (09:48)
[2024-03-14] MEDS: NORCO 5/325 1 TABLET PO (09:48)
[2024-03-14] MEDS: ULTRAM 50 MG PO (09:48)
[2024-03-14] MEDS: TOPAMAX 25 MG PO (09:48)
[2024-03-14] MEDS: CYMBALTA DELAYED RELEASE 60 MG PO (09:49)
[2024-03-14] MEDS: VITAMIN D3 (cholecalciferol) 50 MCG PO (09:49)
[2024-03-14] MEDS: DESENEX/MITRAZOL/ZEASORB 1 APPLIC TOPICAL (09:49)
--- NOTE | 2024-03-14 10:07 | CM ---
Addendum entered by Jh Landry 03/14/24 10:24:
1 pm ambulance transport. [facility]/ [facility] made aware.
[facility] made aware of transport time
[facility]

Original Note:
Chart reviewed. ERCD performed yesterday.
Pt to return to [facility] today via ambulance transport.
degree clerk to arrange transport. Transport forms on chart. Await time
IMM reviewed w/ ANDREA/Bernadette via phone. Copy will be emailed to POA as requested. Copy placed in chart
[facility] DNR form signed
[facility]
Report [phone]

Plan: Return to [facility] w/ [facility] via ambulance transport
--- NOTE | 2024-03-14 10:28 | W.PN.HOSP.TC ---
Today's Communication/Plan
-
dc to SNF hospice
Assessment / Plan
Assessment / Plan
79M [facility] ext pmhx including Dementia, CHF, chronic leg edema, brain aneurysm rupture/repair August 1994, CVAs, sz d/o, CAD, HTN, HLD, chronic pain opiate dependent, hypothyroidism, depression, spina bifida/spinal stenosis, bilateral
hypertensive retinopathy p/w RUQ abd pain and jaundice.
Assessment:
Hyperbilirubinemia with transaminitis
- CT: Severe intrahepatic bile duct dilatation with an ill-defined soft tissue mass centered in the region of the pancreatic head/dori hepatis that is highly suspicious for pancreatic adenocarcinoma. Cholangiocarcinoma would be an alternative
consideration. Significant dilatation of the gallbladder/gallbladder hydrops containing cholelithiasis.
- s/p EUS 03/10: A mass was identified, favor to be located in the pancreatic head. However this was difficult to determine due to significant anatomical deformity. There was a larger mass which appeared to be a direct extension in the dori hepatis
region. Fine needle aspiration performed. One malignant-appearing lymph node was visualized in the peripancreatic region.
- s/p ERCP 03/10: A single severe biliary stricture was found in the upper third of the main bile duct. The stricture was malignant appearing. The gallbladder, left main hepatic duct and right main hepatic duct were moderately
dilated, with a mass causing an obstruction. A pancreatic sphincterotomy was performed. One plastic stent was placed into the ventral pancreatic duct. A biliary sphincterotomy was performed. Common bile duct was successfully dilated. Failed
placement of a plastic pigtail stent due to inability to traverse the stenosis and failed re-cannulation attempt from surrounding edema.
- s/p ERCP 03/13: s/p CBD stent
- stop Abx at discharge
- family has opted for hospice and plan for DC to hospice/SNF today.
Periodic agitation with history of Dementia
- prn Haldol
Systolic Murmur
- Echo: Mild LVH with preserved systolic function, EF 55- 60%. Thickened mitral leaflets with trace mitral regurgitation and normal left atrium. Moderate to severe aortic stenosis with mild aortic regurgitation, peak/mean gradient 55/34 mmHg, aortic
valve area 1.0 cm2. Normal right heart, probably with normal pulmonary artery pressure. Small pericardial and left pleural effusion.
CVA hx
- Subtle left arm hemiparesis can lift up to face
- Aphasia/Dysphagia hx - resolved
Sz d/o poststroke
- continue Keppra 500 mg twice daily
- continue Topamax 125 mg daily, 200 mg QPM
Chronic diastolic heart failure with chronic peripheral edema
- monitor I/O, daily weights
- venous duplex neg for dvt
CAD
- cont aspirin 81 mg daily
reported hx HTN
- no home antihypertensives noted
- monitor
HLD
- lipid profile appreciated elevated triglycerides cholesterol LDL 170
- goal LDL w/hx stroke <70
- cont statin
Chronic pain on chronic oral opiates due to spinal stenosis
- patient on hydrocodone/acetaminophen 1 tab daily, tramadol 50 mg twice daily, gabapentin 200 mg daily
Hypothyroidism
- continue levothyroxine 50 mcg p.o. daily
Depression
- continue Cymbalta 60 mg daily
Vitamin D deficiency
- continue vitamin D3 50 mcg p.o. daily
Insomnia
- continue melatonin 5 mg at bedtime
Chronic ambulatory dysfunction Hx falls
- patient reports uses walker to ambulate
- PT/OT consult appreciated SNF vs return to LTC
Hx Bilateral hypertensive retinopathy
DVT ppx: Lovenox
Code: DNR
03/11: Discussed case with Cousin Bernadette [phone] and Bernadette's friend Gladys Vidal [phone]. Hospice consulted. >30 minutes spent in discussions.
03/12: Discussed case with Cousin Bernadette [phone] and Bernadette's friend Gladys Vidal [phone] again today, both confirm along with patients estranged Brother Rich. All in agreement to proceed with hospice care given poor prognosis. They opt
against further procedures.
03/13: Bernadette ok to proceed with repeat ERCP for palliative stenting today.
Dispo: plan DC back to SNF and start hospice today. CM/hospice/GI aware.
More than 30 minutes spent in discharge including
Final examination of the patient
Summarizing hospital stay
Instructions for continuing care to all relevant caregivers
Preparation of discharge records, prescriptions, and referral forms
Total time spent (in minutes):41
Anticipated Discharge: Today
Subjective/Interval History
-
Date of Service: March 14, 2024
s/p ERCP with CBD stent
Objective Data
-
Labs:
Laboratory Results
03/14/24
06:43
WBC 16.5 H
Hgb 10.4 L
Hct 31.0 L
Plt Count 309
Sodium 135
Potassium 3.7
Chloride 99
Carbon Dioxide 22
BUN 19
Creatinine 1.0
Glucose 93
Calcium 9.1
Total Bilirubin 12.1 H
AST 72 H
ALT 57 H
Alkaline Phosphatase 612 H
Vital Signs:
Vital Signs
Temp Pulse Resp BP Pulse Ox
98.4 F 76 22 148/80 100
03/14/24 07:30 03/14/24 07:30 03/14/24 07:30 03/14/24 07:30 03/14/24 07:30
I&O
03/13/24 03/14/24 03/15/24
06:59 06:59 06:59
Intake Total 440 / 440
Balance 440 / 440
Physical Exam
-
General: No Apparent Distress
HEENT: Normocephalic and Atraumatic
Respiratory: Negative Wheezes or Rales
Cardiac: Regular Rhythm and S1/S2
GI: Soft
Genito-urinary: No Costovertebral Tender
Musculoskeletal: No Edema
Neuro: AO x 3
Psych: Calm
Data Reviewed
-
Total Time Spent with Patient (in minutes): 41
Labs: Labs Reviewed by me
--- NOTE | 2024-03-14 10:35 | W.DS.TRANS ---
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
-
Discharge Instructions:
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
malignancy s/p EUS and ERCP 03/10 and repeat ERCP
for stenting
Diet Regular,As tolerated
Activity As tolerated
Bathing Restrictions None
Other Services Hospice
Instructions:
Stand-Alone Forms:
Changes to Home Medications: No
Discharge Medications:
DC Medications w/original date entered in [facility]
acetaminophen 325 mg capsule (Tylenol) 650 mg PO Q4HPRN PRN mild pain/temp>100 10/07/19
gabapentin 100 mg capsule 200 mg PO DAILY neuropathic pain 10/07/19
levetiracetam 500 mg tablet 500 mg PO BID Seizures 10/07/19
levothyroxine 50 mcg tablet 50 mcg PO NOW Thyroid 10/07/19
melatonin 5 mg tablet 5 mg PO HS Sleep 10/07/19
simvastatin 40 mg tablet 40 mg PO QPM High Cholesterol 10/07/19
topiramate 100 mg tablet 100 mg PO DAILY Seizures 10/07/19
tramadol 50 mg tablet 50 mg PO BID Pain 10/07/19
aspirin 81 mg tablet,delayed release 81 mg PO DAILY Blood Clot Prevention/Tx 03/07/24
cholecalciferol (vitamin D3) 50 mcg (2,000 unit) tablet 50 mcg PO DAILY Supplement 03/07/24
dimethicone 1.2 %-colloidal oatmeal lotion (Aveeno Daily Moisturizing) 1 ea topical DAILY Skin Issues 03/07/24
docusate sodium 100 mg capsule 200 mg PO HS Constipation 03/07/24
duloxetine 60 mg capsule,delayed release 60 mg PO DAILY Depression 03/07/24
hydrocodone 5 mg-acetaminophen 325 mg tablet 1 tab PO DAILY Pain 03/07/24
hydrocortisone 1 % topical cream 1 applic topical Q6HPRN PRN reddened, pruritic skin 03/07/24
magnesium hydroxide 400 mg/5 mL oral suspension (Milk of Magnesia) 30 ml PO DAILYPRN PRN if no bm in 3 days 03/07/24
topiramate 200 mg tablet 200 mg PO DAILY Seizures 03/07/24
topiramate 25 mg tablet 25 mg PO DAILY Seizures 03/07/24
Home Medication Changes
Pending Results: No
Total time spent discharging patient (in min): 41
[2024-03-14 11:00] VITALS: BP 140/76
--- NOTE | 2024-03-14 15:35 | PTCARENOTE ---
Multiple attempts made to give report to [facility] staff---unable to do so. Multiple messages left, awaiting return call.
== END 2024-03-14 15:52 | disposition hospice, inpatient (51) | DRG 435 ==
LOC: 4 WEST ACU 18:38
PROVIDERS: Clinical Nurse Specialist Family Health; Emergency Medicine; Internal Medicine Gastroenterology; Nurse Practitioner; Nurse Practitioner Family; ADMITTING PHYSICIAN Hospitalist; ATTENDING PHYSICIAN Internal Medicine; CONSULT PHYSICIAN Internal Medicine; EMERGENCY PHYSICIAN Student in an Organized Health Care Education/Training Program
PROC: 0F798ZZ Dilation of Common Bile Duct, Via Natural or Artificial Opening Endoscopic (ICD-10-PCS; 2024-03-10)
PROC: 0F9G8ZX Drainage of Pancreas, Via Natural or Artificial Opening Endoscopic, Diagnostic (ICD-10-PCS; 2024-03-10)
PROC: BF4CZZZ Ultrasonography of Hepatobiliary System, All (ICD-10-PCS; 2024-03-10)
PROC: 0F7D8DZ Dilation of Pancreatic Duct with Intraluminal Device, Via Natural or Artificial Opening Endoscopic (ICD-10-PCS; 2024-03-10)
PROC: 0F778DZ Dilation of Common Hepatic Duct with Intraluminal Device, Via Natural or Artificial Opening Endoscopic (ICD-10-PCS; 2024-03-13)
DX: C25.0 Malignant neoplasm of head of pancreas (principal); K83.1 Obstruction of bile duct; F03.911 Unspecified dementia, unspecified severity, with agitation; F03.918 Unspecified dementia, unspecified severity, with other behavioral disturbance; F03.93 Unspecified dementia, unspecified severity, with mood disturbance; I13.0 Hypertensive heart and chronic kidney disease with heart failure and stage 1 through stage 4 chronic kidney disease, or unspecified chronic kidney disease; I50.32 Chronic diastolic (congestive) heart failure; I69.354 Hemiplegia and hemiparesis following cerebral infarction affecting left non-dominant side; K82.0 Obstruction of gallbladder; F11.20 Opioid dependence, uncomplicated; I25.10 Atherosclerotic heart disease of native coronary artery without angina pectoris; N18.9 Chronic kidney disease, unspecified; E78.00 Pure hypercholesterolemia, unspecified; G89.29 Other chronic pain; E03.9 Hypothyroidism, unspecified; F32.A Depression, unspecified; E55.9 Vitamin D deficiency, unspecified; G47.00 Insomnia, unspecified; M48.00 Spinal stenosis, site unspecified; Q05.9 Spina bifida, unspecified; H35.033 Hypertensive retinopathy, bilateral; R56.9 Unspecified convulsions; M41.9 Scoliosis, unspecified; Z53.8 Procedure and treatment not carried out for other reasons; K83.8 Other specified diseases of biliary tract; K31.89 Other diseases of stomach and duodenum; Z51.5 Encounter for palliative care; I35.2 Nonrheumatic aortic (valve) stenosis with insufficiency; Z91.81 History of falling; Z86.16 Personal history of COVID-19; Z79.82 Long term (current) use of aspirin
CPT/HCPCS: 88172; 88173; 88305; 74160; 74330; 76000; 76700; 80053; 80061; 82248; 83605; 83690; 85025; 85610; 86704; 86706; 86708; 86709; 86803; 87040; 87070; 87340; 88341; 88342; 93005; 93306; 93970; 96365; 96372; 97116; 97162; 97167; 97530; 97535; 99284; C1726; C1769; C2617; C2625; Q9967